=== PATIENT | female | born 1995 | race Caucasian/White ===

== ENCOUNTER 2016-10-19 12:36 | Inpatient (IN) | payer OTHER ==
[2016-10-22] MEDS ORDERED: ZOLPIDEM TARTRATE 5 MG TABLET PO PRN ×2 (01:20→18:31)
[2016-10-22] MEDS ORDERED: MAG HYDROX/AL HYDROX/SIMETH SUSP 30 ML UDCUP PO PRN (01:20)
[2016-10-22] MEDS ORDERED: DINOPROSTONE 10 MG VAGINAL INSERT.SR PV ONE (01:20)
[2016-10-22] MEDS ORDERED: RINGERS SOLUTION,LACTATED 1,000 ML IV PRN (01:20)
[2016-10-22] MEDS ORDERED: OXYTOCIN/NORMAL SALINE 20 UNIT/1,000 ML RTUINJ IV PRN (01:20)
[2016-10-22] MEDS ORDERED: ACETAMINOPHEN 325 MG TABLET PO PRN (01:20)
[2016-10-22] MEDS ORDERED: RINGERS SOLUTION,LACTATED 300 ML IV ONE (01:20)
[2016-10-22 02:04] LABS: ABSOLUTE EOSINOPHILS # (AUTO) 0.1 10^3/uL (0.0-0.6); ABSOLUTE LYMPHOCYTES (AUTO) 1.7 10^3/uL (0.5-4.7); ABSOLUTE MONOCYTES (AUTO) 0.8 10^3/uL (0.1-1.4); ABSOLUTE NEUT (AUTO) 6.3 10^3/uL (1.7-8.2); BASOPHILS % (AUTO) 0.2 % (0-2); EOSINOPHILS % (AUTO) 0.6 % (0-6); HEMATOCRIT 32.5 % (36.0-47.0); HEMOGLOBIN 10.8 g/dL (12.0-15.5); HGB HCT DIFFERENCE -0.1; LYMPHOCYTES % (AUTO) 19.3 % (13-45); MEAN CORPUSCULAR HEMOGLOBIN 26.5 pg (27.0-33.4); MEAN CORPUSCULAR HGB CONC 33.3 g/dL (32.0-36.0); MEAN CORPUSCULAR VOLUME 79 fl (80-97); MONOCYTES % (AUTO) 8.7 % (3-13); RED BLOOD COUNT 4.09 10^6/uL (3.72-5.28); RED CELL DISTRIBUTION WIDTH 15.1 % (11.5-14.0); SEGMENTED NEUTROPHILS % (AUTO) 71.2 % (42-78); WHITE BLOOD COUNT 8.9 10^3/uL (4.0-10.5)
[2016-10-22 02:09] LABS: APPEARANCE,URINE CLEAR; BILIRUBIN,URINE NEGATIVE (NEGATIVE); GLUCOSE, URINE NEGATIVE (NEGATIVE); KETONES,URINE NEGATIVE (NEGATIVE); LEUKOCYTE ESTERASE,URINE TRACE (NEGATIVE); NITRITE,URINE NEGATIVE (NEGATIVE); PROTEIN,URINE NEGATIVE (NEGATIVE); URINE SPECIFIC GRAVITY 1.013; UROBILINOGEN,URINE NEGATIVE mg/dL (<2.0)
[2016-10-22 02:29] LABS: URINE BARBITURATES SCREEN NEGATIVE; URINE METHADONE SCREEN NEGATIVE; URINE OPIATES LOW NEGATIVE; URINE PHENCYCLIDINE SCREEN NEGATIVE
[2016-10-22] MEDS ORDERED: DINOPROSTONE 10 MG VAGINAL INSERT.SR ONE (02:31)
[2016-10-22] MEDS ORDERED: MAG HYDROX/AL HYDROX/SIMETH SUSP 30 ML UDCUP ONE (02:47)
--- NOTE | 2016-10-22 08:01 | L&D Flow Sheet ---
LD Flowsheet Datetime Report Generated by CPN: 10/22/2016 08:00 Datetime: 10/22/2016 07:53 Patient Position/Activity: Left Tilt; Low Fowlers (Rayne Blaine, RN) Communication Communication: RN at Bedside (Rayne Blaine, RN) Datetime: 10/22/2016 07:52 NBP Sys/Myesha/Mean (mmHg): 114 (QS system process) : 70 (QS system process) : 88 (QS system process) Pulse: 67 (QS system process) LaborFlag: Labor (QS system process) Datetime: 10/22/2016 07:30 Uterine Activity Monitor Mode: External; Palpation (Rayne Valladares, RN) Frequency (min): irritability (Rayne Valladares, RN) Resting Tone (Palpate): Relaxed (Rayne Valladares, RN) Assessment A Monitor Mode: External US (Rayne Valladares, RN) FHR Baseline Rate : 125 (Rayne Valladares, RN) FHR Baseline Changes: No Baseline Change (Rayne Valladares, RN) Variability: Moderate 6-25 bpm (Rayne Valladares, RN) Accelerations: 15X15 (Rayne Valladares, RN) Decelerations: None (Rayne Valladares, RN) Datetime: 10/22/2016 07:26 Maternal Assessment Level of Consciousness: Fully Conscious (Rayne Valladares, RN) DTR's/Clonus: DTRs 2+; No Clonus (Rayne Valladares, RN) Headache: Denies (Rayne Valladares, RN) Breath Sounds, Left: Clear and Equal (Rayne Valladares, RN) Breath Sounds, Right: Clear and Equal (Rayne Valladares, RN) Nausea/Vomiting: Denies (Rayne Blaine, RN) RUQ Epigastric Pain: Denies (Rayne Blaine, RN) Datetime: 10/22/2016 07:10 Communication Communication: Report Given to @ M Blaine RN (Rebecca Ledgerwood, RN) Datetime: 10/22/2016 07:00 Uterine Activity Monitor Mode: External; Palpation (Rebecca Ledgerwood, RN) Frequency (min): 7.5-6.5 (Rebecca Ledgerwood, RN) Quality: Mild (Rebecca Ledgerwood, RN) Duration (sec): 80-110 (Rebecca Ledgerwood, RN) Duration Criteria: Less than Two 120 Second Contractions (Rebecca Ledgerwood, RN) Pattern: Normal: <= 5 Contractions in 10 Minutes (Rebecca Ledgerwood, RN) Resting Tone (Palpate): Relaxed (Rebecca Ledgerwood, RN) Assessment A Monitor Mode: External US (Rebecca Ledgerwood, RN) FHR Baseline Rate : 125 (Rebecca Ledgerwood, RN) FHR Baseline Changes: No Baseline Change (Rebecca Ledgerwood, RN) Variability: Moderate 6-25 bpm (Rebecca Ledgerwood, RN) Accelerations: 15X15 (Rebecca Ledgerwood, RN) Decelerations: None (Rebecca Ledgerwood, RN) Datetime: 10/22/2016 06:52 NBP Sys/Myesha/Mean (mmHg): 109 (QS system process) : 69 (QS system process) : 82 (QS system process) Pulse: 81 (QS system process) LaborFlag: Labor (QS system process) Datetime: 10/22/2016 06:30 Uterine Activity Monitor Mode: External; Palpation (Rebecca Rainey RN) Frequency (min): 1.5-5.5 (Rebecca Rainey RN) Quality: Mild (Rebecca Rainey RN) Duration (sec): 70-100 (Rebecca Rainey RN) Duration Criteria: Less than Two 120 Second Contractions (Rebecca Rainey RN) Pattern: Normal: <= 5 Contractions in 10 Minutes (Rebecca Ledgerwood, RN) Resting Tone (Palpate): Relaxed (Rebecca Ledgerwood, RN) Assessment A Monitor Mode: External US (Rebecca Ledgerwood, RN) FHR Baseline Rate : 125 (Rebecca Ledgerwood, RN) FHR Baseline Changes: No Baseline Change (Rebecca Ledgerwood, RN) Variability: Moderate 6-25 bpm (Rebecca Ledgerwood, RN) Accelerations: 15X15 (Rebecca Ledgerwood, RN) Decelerations: None (Rebecca Ledgerwood, RN) Datetime: 10/22/2016 06:00 Uterine Activity Monitor Mode: External; Palpation (Rebecca Ledgerwood, RN) Frequency (min): 4.5-6 (Rebecca Ledgerwood, RN) Quality: Mild (Rebecca Ledgerwood, RN) Duration (sec): 80-130 (Rebecca Ledgerwood, RN) Pattern: Normal: <= 5 Contractions in 10 Minutes (Rebecca Ledgerwood, RN) Resting Tone (Palpate): Relaxed (Rebecca Ledgerwood, RN) Assessment A Monitor Mode: External US (Rebecca Ledgerwood, RN) FHR Baseline Rate : 125 (Rebecca Ledgerwood, RN) FHR Baseline Changes: No Baseline Change (Rebecca Ledgerwood, RN) Variability: Moderate 6-25 bpm (Rebecca Ledgerwood, RN) Accelerations: 15X15 (Rebecca Ledgerwood, RN) Decelerations: None (Rebecca Ledgerwood, RN) Datetime: 10/22/2016 05:52 NBP Sys/Myesha/Mean (mmHg): 115 (QS system process) : 66 (QS system process) : 83 (QS system process) Pulse: 74 (QS system process) Respirations: 14 (Rebecca Rainey RN) LaborFlag: Labor (QS system process) Datetime: 10/22/2016 05:30 Uterine Activity Monitor Mode: External; Palpation (Rebecca Rainey, RN) Frequency (min): 4.5-6.5 (Rebeccaolivia Frasergerchristie, RN) Quality: Mild (Rebecca Ledgerwood, RN) Duration (sec): 50-70 (Rebecca Ledgerwood, RN) Duration Criteria: Less than Two 120 Second Contractions (Rebeccaolivia Frasergerwood, RN) Pattern: Normal: <= 5 Contractions in 10 Minutes (Rebecca Eveliogerwood, RN) Resting Tone (Palpate): Relaxed (Rebecca Ledgerwood, RN) Assessment A Monitor Mode: External US (Rebecca Ledgerwood, RN) FHR Baseline Rate : 135 (Rebecca Ledgerwood, RN) FHR Baseline Changes: No Baseline Change (Rebecca Ledgerwood, RN) Variability: Moderate 6-25 bpm (Rebecca Ledgerwood, RN) Accelerations: 10X10 (Rebecca Ledgerwood, RN) Decelerations: None (Rebecca Ledgerwood, RN) Datetime: 10/22/2016 05:00 Uterine Activity Monitor Mode: External; Palpation (Rebecca Ledgerwood, RN) Frequency (min): irreg (Rebecca Ledgerwood, RN) Quality: Mild (Rebecca Ledgerwood, RN) Duration (sec): 60-80 (Rebecca Ledgerwood, RN) Duration Criteria: Less than Two 120 Second Contractions (Rebecca Ledgerwood, RN) Pattern: Normal: <= 5 Contractions in 10 Minutes (Rebecca Ledgerwood, RN) Resting Tone (Palpate): Relaxed (Rebecca Ledgerwood, RN) Assessment A Monitor Mode: External US (Rebecca Ledgerwood, RN) FHR Baseline Rate : 155 (Rebecca Ledgerwood, RN) FHR Baseline Changes: No Baseline Change (Rebecca Ledgerwood, RN) Variability: Moderate 6-25 bpm (Rebecca Ledgerwood, RN) Accelerations: 10X10 (Rebecca Ledgerwood, RN) Decelerations: None (Rebecca Ledgerwood, RN) Datetime: 10/22/2016 04:54 NBP Sys/Myesha/Mean (mmHg): 117 (QS system process) : 55 (QS system process) : 79 (QS system process) Pulse: 65 (QS system process) LaborFlag: Labor (QS system process) Datetime: 10/22/2016 04:30 Uterine Activity Monitor Mode: External; Palpation (Rebecca Ledgerwood, RN) Frequency (min): 4-7 (Rebecca Ledgerwood, RN) Quality: Mild (Rebecca Ledgerwood, RN) Duration (sec): 70-80 (Rebecca Ledgerwood, RN) Duration Criteria: Less than Two 120 Second Contractions (Rebecca Ledgerwood, RN) Pattern: Normal: <= 5 Contractions in 10 Minutes (Rebecca Ledgerwood, RN) Resting Tone (Palpate): Relaxed (Rebecca Ledgerwood, RN) Assessment A Monitor Mode: External US (Rebecca Ledgerwood, RN) FHR Baseline Rate : 155 (Rebecca Ledgerwood, RN) FHR Baseline Changes: No Baseline Change (Rebecca Ledgerwood, RN) Variability: Moderate 6-25 bpm (Rebecca Ledgerwood, RN) Accelerations: 10X10 (Rebecca Ledgerwood, RN) Decelerations: None (Rebecca Ledgerwood, RN) Datetime: 10/22/2016 04:00 Uterine Activity Monitor Mode: External; Palpation (Rebecca Ledgerwood, RN) Frequency (min): 2-6.5 (Rebecca Ledgerwood, RN) Quality: Mild (Rebecca Ledgerwood, RN) Duration (sec): 50-80 (Rebecca Ledgerwood, RN) Duration Criteria: Less than Two 120 Second Contractions (Rebecca Ledgerwood, RN) Pattern: Normal: <= 5 Contractions in 10 Minutes (Rebecca Ledgerwood, RN) Resting Tone (Palpate): Relaxed (Rebecca Ledgerwood, RN) Assessment A Monitor Mode: External US (Rebecca Ledgerwood, RN) FHR Baseline Rate : 125 (Rebecca Ledgerwood, RN) FHR Baseline Changes: No Baseline Change (Rebecca Ledgerwood, RN) Variability: Moderate 6-25 bpm (Rebecca Ledgerwood, RN) Accelerations: 15X15 (Rebecca Ledgerwood, RN) Decelerations: None (Rebecca Ledgerwood, RN) Datetime: 10/22/2016 03:52 NBP Sys/Myesha/Mean (mmHg): 101 (QS system process) : 57 (QS system process) : 73 (QS system process) Pulse: 68 (QS system process) Respirations: 14 (Rebecca Ledgerwood, RN) LaborFlag: Labor (QS system process) Datetime: 10/22/2016 03:30 Uterine Activity Monitor Mode: External; Palpation (Rebecca Ledgerwood, RN) Frequency (min): 1.5-5.5 (Rebecca Ledgerwood, RN) Quality: Mild (Rebecca Ledgerwood, RN) Duration (sec): 70-90 (Rebecca Ledgerwood, RN) Duration Criteria: Less than Two 120 Second Contractions (Rebecca Ledgerwood, RN) Pattern: Normal: <= 5 Contractions in 10 Minutes (Rebecca Ledgerwood, RN) Resting Tone (Palpate): Relaxed (Rebecca Ledgerwood, RN) Assessment A Monitor Mode: External US (Rebecca Ledgerwood, RN) FHR Baseline Rate : 125 (Rebecca Ledgerwood, RN) FHR Baseline Changes: No Baseline Change (Rebecca Ledgerwood, RN) Variability: Moderate 6-25 bpm (Rebecca Ledgerwood, RN) Accelerations: 15X15 (Rebecca Ledgerwood, RN) Decelerations: None (Rebecca Ledgerwood, RN) Datetime: 10/22/2016 03:00 Uterine Activity Monitor Mode: External; Palpation (Rebecca Ledgerwood, RN) Frequency (min): 3.5-8.5 (Rebecca Ledgerwood, RN) Quality: Mild (Rebecca Ledgerwood, RN) Duration (sec): 70-90 (Rebecca Ledgerwood, RN) Duration Criteria: Less than Two 120 Second Contractions (Rebecca Ledgerwood, RN) Pattern: Normal: <= 5 Contractions in 10 Minutes (Rebecca Ledgerwood, RN) Resting Tone (Palpate): Relaxed (Rebecca Ledgerwood, RN) Assessment A Monitor Mode: External US (Rebecca Ledgerwood, RN) FHR Baseline Rate : 125 (Rebecca Ledgerwood, RN) FHR Baseline Changes: No Baseline Change (Rebecca Ledgerwood, RN) Variability: Moderate 6-25 bpm (Rebecca Ledgerwood, RN) Accelerations: 15X15 (Rebecca Ledgerwood, RN) Decelerations: None (Rebecca Ledgerwood, RN) Datetime: 10/22/2016 02:52 NBP Sys/Myesha/Mean (mmHg): 110 (QS system process) : 59 (QS system process) : 80 (QS system process) Pulse: 72 (QS system process) LaborFlag: Labor (QS system process) Datetime: 10/22/2016 02:49 Medication Comments: Maalox 30 ml given (Rebecca Ledgerwood, RN) Datetime: 10/22/2016 02:42 Medications Cervical Ripening Agents: Cervidil (Rebecca Ledgerwood, RN) Datetime: 10/22/2016 02:40 Vaginal Exam Dilatation (cm): 1.0 (Rebecca Ledgerwood, RN) Effacement (%): 80 (Rebecca Ledgerwood, RN) Station: -1 (Rebecca Ledgerwood, RN) Exam by: O Redd RN (Rebecca Ledgerwood, RN) Datetime: 10/22/2016 02:30 Uterine Activity Monitor Mode: External; Palpation (Rebecca Ledgerwood, RN) Frequency (min): 1.5-7 (Rebecca Ledgerwood, RN) Quality: Mild (Rebecca Ledgerwood, RN) Duration (sec): 70-90 (Rebecca Ledgerwood, RN) Duration Criteria: More than Two 120 Second or Greater Contractions (Rebecca Ledgerwood, RN) Pattern: Normal: <= 5 Contractions in 10 Minutes (Rebecca Ledgerwood, RN) Resting Tone (Palpate): Relaxed (Rebecca Ledgerwood, RN) Assessment A Monitor Mode: External US (Rebecca Ledgerwood, RN) FHR Baseline Rate : 120 (Rebecca Ledgerwood, RN) FHR Baseline Changes: No Baseline Change (Rebecca Ledgerwood, RN) Variability: Moderate 6-25 bpm (Rebecca Ledgerwood, RN) Accelerations: 15X15 (Rebecca Ledgerwood, RN) Decelerations: None (Rebecca Ledgerwood, RN) Datetime: 10/22/2016 02:21 NBP Sys/Myesha/Mean (mmHg): 125 (QS system process) : 71 (QS system process) : 93 (QS system process) Pulse: 86 (QS system process) LaborFlag: Labor (QS system process) Datetime: 10/22/2016 02:16 Procedures: Consents Signed (Rebecca Ledgerwood, RN) Datetime: 10/22/2016 02:10 Patient Care IV/Blood Work: IV Started; IV Bolus Started; IV Infusing per Order; New IV Bag Hung (Ellyn Errichiello, RN) Datetime: 10/22/2016 02:00 Uterine Activity Monitor Mode: External; Palpation (Rebecca Ledgerwood, RN) Frequency (min): 2.5-5.5 (Rebecca Ledgerwood, RN) Quality: Mild (Rebecca Ledgerwood, RN) Duration (sec): 70-90 (Rebecca Ledgerwood, RN) Duration Criteria: Less than Two 120 Second Contractions (Rebecca Ledgerwood, RN) Pattern: Normal: <= 5 Contractions in 10 Minutes (Rebecca Ledgerwood, RN) Resting Tone (Palpate): Relaxed (Rebecca Ledgerwood, RN) Assessment A Monitor Mode: External US (Rebecca Ledgerwood, RN) FHR Baseline Rate : 125 (Rebecca Ledgerwood, RN) FHR Baseline Changes: No Baseline Change (Rebecca Ledgerwood, RN) Variability: Moderate 6-25 bpm (Rebecca Ledgerwood, RN) Accelerations: 15X15 (Rebecca Ledgerwood, RN) Decelerations: None (Rebecca Ledgerwood, RN) Datetime: 10/22/2016 01:51 NBP Sys/Myesha/Mean (mmHg): 104 (QS system process) : 56 (QS system process) : 72 (QS system process) Pulse: 76 (QS system process) LaborFlag: Labor (QS system process) Datetime: 10/22/2016 01:30 Uterine Activity Monitor Mode: External; Palpation (Rebecca Rainey RN) Frequency (min): 3.5 (Rebecca Rainey RN) Quality: Mild (Rebecca Ledgerwood, RN) Duration (sec): 70 (Rebecca Ledgerwood, RN) Duration Criteria: Less than Two 120 Second Contractions (Rebecca Ledgerwood, RN) Pattern: Normal: <= 5 Contractions in 10 Minutes (Rebecca Ledgerwood, RN) Resting Tone (Palpate): Relaxed (Rebecca Ledgerwood, RN) Assessment A Monitor Mode: External US (Rebecca Ledgerwood, RN) FHR Baseline Rate : 120 (Rebecca Ledgerwood, RN) FHR Baseline Changes: No Baseline Change (Rebecca Ledgerwood, RN) Variability: Minimal - Undetectable to <=5 bpm (Rebecca Ledgerwood, RN) Accelerations: None (Rebecca Ledgerwood, RN) Decelerations: None (Rebecca Ledgerwood, RN) Datetime: 10/22/2016 01:22 NBP Sys/Myesha/Mean (mmHg): 102 (QS system process) : 62 (QS system process) : 75 (QS system process) Pulse: 88 (QS system process) Respirations: 14 (Rebecca Ledgerwood, RN) LaborFlag: Labor (QS system process) Datetime: 10/22/2016 01:21 Pain Pain Scale: 2 (Rebecca Ledgerwood, RN) Pain Presence: Constant (Rebecca Ledgerwood, RN) Pain Type: Cramping (Rebecca Ledgerwood, RN) Pain Location: Abdomen (Rebecca Ledgerwood, RN) Pain Relief Measures: Comfort Measures (Rebecca Ledgerwood, RN) Pain Coping: Breathing Through Contractions (Rebecca Ledgerwood, RN) Maternal Assessment Level of Consciousness: Fully Conscious (Rebecca Ledgerwood, RN) DTR's/Clonus: DTRs 2+; No Clonus (Rebecca Rainey RN) Headache: Denies (Rebecca Rainey RN) Breath Sounds, Left: Clear and Equal (Rebecca Rainey RN) Breath Sounds, Right: Clear and Equal (Rebecca Raieny, RN) Nausea/Vomiting: Denies (Rebecca Rainey, RN) RUQ Epigastric Pain: Denies (Rebecca Rainey RN) Teaching Instructional Method: Demo; Verbal; Patient Instructed (Rebecca Rainey RN) Plan of Care: Plan of Care Discussed; Vaginal Delivery; Labor; Induction (Rebecca Rainey RN) Unit Routine: [place] to Room; Call Jack; Bed; Visiting Policy; Waiting Areas; Security; Handwashing; Monitoring; Safety/Fall Risk Prevention; Medications (Annotations: Cervadil) (Rebecca Rainey RN) Medications: Cervical Ripening (Rebecca Rainey RN) LaborFlag: Labor (QS system process) Datetime: 10/22/2016 01:04 Vital Signs Stage of : Labor (Rebecca Rainey, DEBORA)
--- NOTE | 2016-10-22 10:01 | L&D Flow Sheet ---
LD Flowsheet Datetime Report Generated by CPN: 10/22/2016 10:00 Datetime: 10/22/2016 09:54 Dilatation (cm): 3.0 (Rayne Valladares, RN) Effacement (%): 80 (Rayne Valladares, RN) Station: -1 (Rayne Valladares, RN) Exam by: H. Jared, CNM (Rayne Valladares, RN) Datetime: 10/22/2016 09:00 Communication Comments: patient off monitor to shower and eat per order (Rayne Valladares, RN) Datetime: 10/22/2016 08:30 Communication Comments: patient off monitor to shower and eat per order (Rayne Valladares, RN) Datetime: 10/22/2016 08:00 Monitor Mode: External; Palpation (Rayne Valladares RN) Frequency (min): irritability (Rayne Valladares RN) Quality: Mild (Rayne Valladares RN) Pattern: Normal: <= 5 Contractions in 10 Minutes (Rayne Valladares RN) Resting Tone (Palpate): Relaxed (Rayne Valladares RN) Monitor Mode: External US (Rayne Valladares RN) FHR Baseline Rate : 120 (Rayne Valladares RN) FHR Baseline Changes: No Baseline Change (Rayne Valladares RN) Variability: Moderate 6-25 bpm (Rayne Valladares RN) Accelerations: 15X15 (Rayne Valladares RN) Decelerations: None (Rayne Valladares RN) Dilatation (cm): 1.0 (Rayne Valladares RN) Effacement (%): 60 (Rayne Valladares RN) Station: -2 (Rayne Valladares RN) Exam by: Ankush Valladares RN (Rayne Valladares RN)
[2016-10-22] MEDS ORDERED: OXYTOCIN/NORMAL SALINE 0 UNIT/0 ML RTUINJ ONE (10:04)
[2016-10-22] MEDS ORDERED: ACETAMINOPHEN 325 MG TABLET ONE (10:12)
[2016-10-22] MEDS ORDERED: NALBUPHINE HCL INJ 10 MG/1 ML AMPULE ONE (10:39)
[2016-10-22] MEDS ORDERED: EPHEDRINE SULFATE INJ 50 MG/1 ML AMPULE ONE (10:59)
[2016-10-22] MEDS ORDERED: BUPIVACAINE HCL 0.25 % INJ/PF (2.5 MG/1 ML) 30 ML VIAL ONE (10:59)
[2016-10-22] MEDS ORDERED: FENTANYL/BUPIVACAINE/NS/PF 200 MCG/100 ML RTUINJ EPI ONE (10:59)
--- NOTE | 2016-10-22 12:01 | L&D Flow Sheet ---
LD Flowsheet Datetime Report Generated by CPN: 10/22/2016 12:00 Datetime: 10/22/2016 11:59 NBP Sys/Myesha/Mean (mmHg): 102 (QS system process) : 61 (QS system process) : 77 (QS system process) Pulse: 75 (QS system process) Pulse: 92 (QS system process) SpO2 (%): 94 (QS system process) LaborFlag: Labor (QS system process) Datetime: 10/22/2016 11:58 NBP Sys/Myesha/Mean (mmHg): 104 (QS system process) : 63 (QS system process) : 76 (QS system process) Pulse: 82 (QS system process) Epidural Procedure: Test Dose (Rayne Valladares RN) LaborFlag: Labor (QS system process) Datetime: 10/22/2016 11:57 NBP Sys/Myesha/Mean (mmHg): 106 (QS system process) : 65 (QS system process) : 81 (QS system process) Pulse: 89 (QS system process) LaborFlag: Labor (QS system process) Datetime: 10/22/2016 11:56 Pulse: 91 (QS system process) SpO2 (%): 95 (QS system process) LaborFlag: Labor (QS system process) Datetime: 10/22/2016 11:55 Anesthesia Plans: Epidural (Rayne Valladares, RN) Epidural Positioning: Sitting (Rayne Blaine, RN) Epidural Procedure: Cath Placed (Rayne Valladares, RN) Datetime: 10/22/2016 11:54 NBP Sys/Myesha/Mean (mmHg): 109 (QS system process) : 65 (QS system process) : 82 (QS system process) Pulse: 82 (QS system process) LaborFlag: Labor (QS system process) Datetime: 10/22/2016 11:53 NBP Sys/Myesha/Mean (mmHg): 105 (QS system process) : 63 (QS system process) : 77 (QS system process) Pulse: 85 (QS system process) LaborFlag: Labor (QS system process) Datetime: 10/22/2016 11:52 NBP Sys/Myesha/Mean (mmHg): 112 (QS system process) : 67 (QS system process) : 83 (QS system process) Pulse: 93 (QS system process) LaborFlag: Labor (QS system process) Datetime: 10/22/2016 11:51 NBP Sys/Myesha/Mean (mmHg): 109 (QS system process) : 65 (QS system process) : 82 (QS system process) Pulse: 77 (QS system process) Pulse: 78 (QS system process) SpO2 (%): 94 (QS system process) Anesthesia Comments: cath removed (Rayne Valladares RN) LaborFlag: Labor (QS system process) Datetime: 10/22/2016 11:50 NBP Sys/Myesha/Mean (mmHg): 109 (QS system process) : 68 (QS system process) : 84 (QS system process) Pulse: 77 (QS system process) LaborFlag: Labor (QS system process) Datetime: 10/22/2016 11:49 NBP Sys/Myesha/Mean (mmHg): 120 (QS system process) : 71 (QS system process) : 90 (QS system process) Pulse: 86 (QS system process) Anesthesia Plans: Epidural (Rayne Valladares RN) Epidural Positioning: Sitting (Rayne Valladares RN) Epidural Procedure: Test Dose (Rayne Valladares RN) Epidural Procedure: Cath Placed (Rayne Valladares RN) LaborFlag: Labor (QS system process) Datetime: 10/22/2016 11:48 NBP Sys/Myesha/Mean (mmHg): 120 (QS system process) : 68 (QS system process) : 90 (QS system process) Pulse: 84 (QS system process) LaborFlag: Labor (QS system process) Datetime: 10/22/2016 11:47 NBP Sys/Myesha/Mean (mmHg): 114 (QS system process) : 73 (QS system process) : 88 (QS system process) Pulse: 83 (QS system process) SpO2 (%): 94 (QS system process) LaborFlag: Labor (QS system process) Datetime: 10/22/2016 11:46 Pulse: 82 (QS system process) SpO2 (%): 95 (QS system process) Anesthesia Comments: cath removed (Rayne Blaine, RN) LaborFlag: Labor (QS system process) Datetime: 10/22/2016 11:45 Comments: tracing maternal HR (Rayne Valladares RN) Anesthesia Plans: Epidural (Rayne Valladares RN) Epidural Positioning: Sitting (Rayne Valladares RN) Epidural Procedure: Cath Placed; Test Dose (Rayne Valladares RN) Datetime: 10/22/2016 11:44 NBP Sys/Myesha/Mean (mmHg): 114 (QS system process) : 72 (QS system process) : 89 (QS system process) Pulse: 80 (QS system process) LaborFlag: Labor (QS system process) Datetime: 10/22/2016 11:42 NBP Sys/Myesha/Mean (mmHg): 122 (QS system process) : 79 (QS system process) : 94 (QS system process) Pulse: 77 (QS system process) LaborFlag: Labor (QS system process) Datetime: 10/22/2016 11:41 Pulse: 80 (QS system process) SpO2 (%): 96 (QS system process) LaborFlag: Labor (QS system process) Datetime: 10/22/2016 11:40 NBP Sys/Myesha/Mean (mmHg): 116 (QS system process) : 76 (QS system process) : 93 (QS system process) Pulse: 72 (QS system process) LaborFlag: Labor (QS system process) Datetime: 10/22/2016 11:39 Procedure Verify: Correct Patient Identity; Correct Side and Site are Marked; Accurate Procedure Consent Form; Agreement on Procedure to be Done; Correct Patient Position; Relevant Images and Results are Properly Labeled and Displayed; Addressed Need to Administer Antibiotics or Fluids for Irrigation; Safety Precautions Based on Patient History or Medication Use (Rayne Valladares RN) Anesthesia Plans: Epidural (Rayne Valladares RN) Epidural Positioning: Sitting (Rayne Valladares RN) Datetime: 10/22/2016 11:36 Pulse: 78 (QS system process) Pulse: 72 (QS system process) SpO2 (%): 93 (QS system process) SpO2 (%): 92 (QS system process) LaborFlag: Labor (QS system process) Datetime: 10/22/2016 11:21 NBP Sys/Myesha/Mean (mmHg): 106 (QS system process) : 57 (QS system process) : 74 (QS system process) Pulse: 74 (QS system process) LaborFlag: Labor (QS system process) Datetime: 10/22/2016 11:15 Monitor Mode: External; Palpation (Rayne Valladares, RN) Frequency (min): 3-7.5 (Rayne Valladares, RN) Quality: Mild/Moderate (Rayne Blaine, RN) Duration (sec): 40-120 (Rayne Blaine, RN) Duration Criteria: Less than Two 120 Second Contractions (Rayne Blaine, RN) Pattern: Normal: <= 5 Contractions in 10 Minutes (Rayne Blaine, RN) Resting Tone (Palpate): Relaxed (Rayneclotilde Valladares, RN) Monitor Mode: External US (Rayne Valladares, RN) FHR Baseline Rate : 135 (Rayne Valladares, RN) FHR Baseline Changes: No Baseline Change (Rayne Blaine, RN) Variability: Moderate 6-25 bpm (Rayne Blaine, RN) Accelerations: None (Rayne Blaine, RN) Decelerations: None (Rayne Blaine, RN) Datetime: 10/22/2016 11:05 NBP Sys/Myesha/Mean (mmHg): 106 (QS system process) : 62 (QS system process) : 77 (QS system process) Pulse: 75 (QS system process) LaborFlag: Labor (QS system process) Datetime: 10/22/2016 11:00 Monitor Mode: External; Palpation (Rayne Valladares, DEBORA) Frequency (min): 3.5-4.5 (Rayne Valladares, DEBORA) Quality: Mild/Moderate (Rayne Valladares, RN) Duration (sec): 70-90 (Rayne Valladares, RN) Duration Criteria: Less than Two 120 Second Contractions (aRyne Valladares, RN) Pattern: Normal: <= 5 Contractions in 10 Minutes (Rayne Valladares, RN) Resting Tone (Palpate): Relaxed (Rayne Valladares, RN) Monitor Mode: External US (Rayne Valladares, RN) FHR Baseline Rate : 135 (Rayne Valladares, RN) FHR Baseline Changes: No Baseline Change (Rayne Valladares, RN) Variability: Moderate 6-25 bpm (Rayne Valladares, RN) Accelerations: 15X15 (Rayne Valladares, RN) Decelerations: None (Rayne Valladares, RN) Pitocin (milliunit): Pitocin Remains (milliunits) @ (Annotations: 2) (Rayne Valladares, RN) Datetime: 10/22/2016 10:45 Comments: unable to determine, patient in BR (Rayne Valladares, DEBORA) Pitocin (milliunit): Pitocin Increased to (milliunits) @ 2 (Rayne Valladares, RN) Datetime: 10/22/2016 10:42 IV/Blood Work: New IV Bag Hung (Rayne Valladares RN) Patient Position/Activity: Right Extreme; Low Fowlers (Rayne Valladares RN) Datetime: 10/22/2016 10:40 IV/Blood Work: IV Bolus Started (Rayne Valladares RN) Procedure Verify: Correct Patient Identity; Correct Side and Site are Marked; Accurate Procedure Consent Form; Agreement on Procedure to be Done; Relevant Images and Results are Properly Labeled and Displayed; Addressed Need to Administer Antibiotics or Fluids for Irrigation; Safety Precautions Based on Patient History or Medication Use (Rayne Valladares RN) Anesthesia Plans: Epidural (Rayne Valladares RN) Datetime: 10/22/2016 10:39 Patient Care Comments: patient c/o pain 4/5 in vagina, order received from Dr. Aguirre for Nubain 5 mg IV x1 now (Rayne Valladares RN) Datetime: 10/22/2016 10:37 Dilatation (cm): 4.0 (Rayne Valladares RN) Effacement (%): 90 (Rayne Valladares RN) Station: -1 (Rayne Valladares RN) Exam by: Dr. Aguirre (Rayne Valladares RN) Datetime: 10/22/2016 10:30 Monitor Mode: External; Palpation (Rayne Valladares RN) Quality: Mild/Moderate (Rayne Valladares RN) Pattern: Normal: <= 5 Contractions in 10 Minutes (Rayne Valladares RN) Resting Tone (Palpate): Relaxed (Rayne Valladares RN) Contraction Comments: unable to trace contractions due to patient movement, RN at bedside palpating contractions, uterus relaxed in between contractions (Rayne Valladares RN) Monitor Mode: External US (Rayne Valladares RN) FHR Baseline Rate : 130 (Rayne Blaine, RN) FHR Baseline Changes: No Baseline Change (Rayne Valladares, RN) Variability: Moderate 6-25 bpm (Rayne Valladares, RN) Accelerations: 15X15 (Rayne Valladares, RN) Decelerations: None (Rayne Valladares, RN) Pitocin (milliunit): Pitocin Remains (milliunits) @ (Annotations: 1) (Rayne Valladares, RN) Datetime: 10/22/2016 10:27 I/O Interventions: Up to BR (Rayne Valladares, RN) Datetime: 10/22/2016 10:22 Patient Position/Activity: Right Extreme; Semi-Fowlers (Rayne Valladares, RN) Datetime: 10/22/2016 10:16 Patient Care Comments: rocking chair (Rayne Valladares, RN) Datetime: 10/22/2016 10:15 Monitor Mode: External; Palpation (Rayne Valladares, RN) Frequency (min): irritability (Rayne Valladares, DEBORA) Quality: Mild (Rayne Valladares, RN) Duration Criteria: Less than Two 120 Second Contractions (Rayne Valladares, RN) Pattern: Normal: <= 5 Contractions in 10 Minutes (Rayne Valladares, RN) Resting Tone (Palpate): Relaxed (Rayne Valladares, RN) Monitor Mode: External US (Rayne Valladares, RN) FHR Baseline Rate : 135 (Rayne Valladares, RN) FHR Baseline Changes: No Baseline Change (Rayne Valladares, RN) Variability: Moderate 6-25 bpm (Rayne Valladares, RN) Accelerations: 15X15 (Rayne Valladares, RN) Decelerations: None (Rayne Valladares, RN) Pitocin (milliunit): Pitocin Started (milliunits) @ 1; Pitocin 20 Units in 1000ml NS (Rayne Valladares, RN) Datetime: 10/22/2016 10:12 Analgesics/Sedatives: Tylenol (mg) @ 650 (Rayne Valladares RN) Communication Comments: Tylenol per standing order (Rayne Valladares RN) Datetime: 10/22/2016 10:00 Monitor Mode: External; Palpation (Rayne Valladares RN) Frequency (min): x1 (Rayne Valladares RN) Quality: Mild (Rayne Valladares RN) Duration (sec): 150 (Rayne Valladares RN) Duration Criteria: Less than Two 120 Second Contractions (Rayne Valladares RN) Pattern: Normal: <= 5 Contractions in 10 Minutes (Rayne Valladares RN) Resting Tone (Palpate): Relaxed (Rayne Valladares RN) Monitor Mode: External US (Rayne Valladares RN) FHR Baseline Rate : 130 (Rayne Valladares RN) FHR Baseline Changes: No Baseline Change (Rayne Valladares RN) Variability: Moderate 6-25 bpm (Rayne Valladares RN) Accelerations: 15X15 (Rayne Valladares RN) Decelerations: None (Rayne Valladares, DEBORA)
--- NOTE | 2016-10-22 14:01 | L&D Flow Sheet ---
LD Flowsheet Datetime Report Generated by CPN: 10/22/2016 14:00 Datetime: 10/22/2016 13:58 NBP Sys/Myesha/Mean (mmHg): 105 (QS system process) : 63 (QS system process) : 80 (QS system process) Pulse: 74 (QS system process) LaborFlag: Labor (QS system process) Datetime: 10/22/2016 13:44 NBP Sys/Myesha/Mean (mmHg): 115 (QS system process) : 76 (QS system process) : 91 (QS system process) Pulse: 65 (QS system process) LaborFlag: Labor (QS system process) Datetime: 10/22/2016 13:30 Monitor Mode: External; Palpation (Rayne Valladares RN) Frequency (min): 1-3.5 (Rayne Valladares RN) Quality: Mild/Moderate (Rayne Valladares, RN) Duration (sec): 40-60 (Rayne Valladares, DEBORA) Duration Criteria: Less than Two 120 Second Contractions (Rayne Valladares, DEBORA) Pattern: Normal: <= 5 Contractions in 10 Minutes (Rayne Valladares RN) Resting Tone (Palpate): Relaxed (Rayne Valladares, RN) Monitor Mode: External US (Rayne Valladares, [place]BOR[place]) FHR Baseline Rate : 120 (Rayne Valladares RN) FHR Baseline Changes: No Baseline Change (Rayne Valladares RN) Variability: Moderate 6-25 bpm (Rayne Valladares, RN) Accelerations: 10X10 (Rayne Valladares, RN) Decelerations: None (Rayne Valladares, DEBORA) Datetime: 10/22/2016 13:29 NBP Sys/Myesha/Mean (mmHg): 126 (QS system process) : 74 (QS system process) : 93 (QS system process) Pulse: 59 (QS system process) LaborFlag: Labor (QS system process) Datetime: 10/22/2016 13:15 Monitor Mode: External; Palpation (Rayne Valladares RN) Monitor Interventions for UA: [place] Adjusted (Rayne Valladares RN) Frequency (min): 1.5-3.5 (Rayne Valladares RN) Quality: Mild/Moderate (Rayne Valladares RN) Duration (sec): 60-90 (Rayne Valladares RN) Duration Criteria: Less than Two 120 Second Contractions (Rayne Valladares RN) Pattern: Normal: <= 5 Contractions in 10 Minutes (Rayne Valladares RN) Resting Tone (Palpate): Relaxed (Rayne Valladares RN) Monitor Mode: External US (Rayne Valladares RN) FHR Baseline Rate : 120 (Rayne Valladares RN) FHR Baseline Changes: No Baseline Change (Rayne Valladares RN) Variability: Moderate 6-25 bpm (Rayne Valladares RN) Accelerations: 10X10 (Rayne Valladares RN) Decelerations: None (Rayne Valladares RN) Pitocin (milliunit): Pitocin Increased to (milliunits) @ (Annotations: 8) (Rayne Valladares RN) Datetime: 10/22/2016 13:13 NBP Sys/Myesha/Mean (mmHg): 122 (QS system process) : 62 (QS system process) : 87 (QS system process) Pulse: 75 (QS system process) Patient Position/Activity: Left Extreme; Peanut Ball (Rayne Valladares RN) LaborFlag: Labor (QS system process) Datetime: 10/22/2016 13:06 NBP Sys/Myesha/Mean (mmHg): 119 (QS system process) : 72 (QS system process) : 90 (QS system process) Pulse: 69 (QS system process) LaborFlag: Labor (QS system process) Datetime: 10/22/2016 13:01 NBP Sys/Myesha/Mean (mmHg): 110 (QS system process) : 74 (QS system process) : 87 (QS system process) Pulse: 78 (QS system process) LaborFlag: Labor (QS system process) Datetime: 10/22/2016 13:00 Monitor Mode: External; Palpation (Rayne Valladares RN) Frequency (min): 2-2.5 (Rayne Valladares RN) Quality: Mild/Moderate (Rayne Valladares RN) Duration (sec): 60-70 (Rayne Valladares, DEB[place]) Duration Criteria: Less than Two 120 Second Contractions (Rayne Valladares, [place]) Pattern: Normal: <= 5 Contractions in 10 Minutes (Rayne Valladares RN) Resting Tone (Palpate): Relaxed (Rayne Valladares, DEBOR[place]) Monitor Mode: External US (Rayne Valladares, [place]) FHR Baseline Rate : 120 (Rayne Valladares RN) FHR Baseline Changes: No Baseline Change (Ranye Valladares RN) Variability: Moderate 6-25 bpm (Rayne Valladares, [place]) Accelerations: 10X10 (Rayne Valladares, RN) Decelerations: None (Rayne Valladares, [place]) Pitocin (milliunit): Pitocin Remains (milliunits) @ (Annotations: 6) (Rayne Valladares RN) Datetime: 10/22/2016 12:57 NBP Sys/Myesha/Mean (mmHg): 114 (QS system process) : 74 (QS system process) : 89 (QS system process) Pulse: 71 (QS system process) LaborFlag: Labor (QS system process) Datetime: 10/22/2016 12:52 NBP Sys/Myesha/Mean (mmHg): 112 (QS system process) : 71 (QS system process) : 85 (QS system process) Pulse: 74 (QS system process) LaborFlag: Labor (QS system process) Datetime: 10/22/2016 12:46 NBP Sys/Myesha/Mean (mmHg): 109 (QS system process) : 66 (QS system process) : 83 (QS system process) Pulse: 83 (QS system process) Pulse: 80 (QS system process) SpO2 (%): 99 (QS system process) LaborFlag: Labor (QS system process) Datetime: 10/22/2016 12:45 Monitor Mode: External; Palpation (Rayne Valladares RN) Frequency (min): 2.5-3 (Rayne Valladares RN) Quality: Mild/Moderate (Rayne Valladares RN) Duration (sec): 60-70 (Rayne Valladares, [place]) Duration Criteria: Less than Two 120 Second Contractions (Rayne Valladares RN) Pattern: Normal: <= 5 Contractions in 10 Minutes (Rayne Valladares RN) Resting Tone (Palpate): Relaxed (Rayne Valladares, [place]) Monitor Mode: External US (Rayne Valladares, [place]) FHR Baseline Rate : 125 (Rayne Valladares RN) FHR Baseline Changes: No Baseline Change (Rayne Valladares RN) Variability: Moderate 6-25 bpm (Rayne Valladares, [place]) Accelerations: 15X15 (Rayne Valladares, [place]) Decelerations: None (Rayne Valladares, [place]) Pitocin (milliunit): Pitocin Increased to (milliunits) @ (Annotations: 6) (Rayne Valladares RN) Datetime: 10/22/2016 12:42 NBP Sys/Myesha/Mean (mmHg): 116 (QS system process) : 68 (QS system process) : 87 (QS system process) Pulse: 76 (QS system process) LaborFlag: Labor (QS system process) Datetime: 10/22/2016 12:41 Pulse: 80 (QS system process) SpO2 (%): 97 (QS system process) LaborFlag: Labor (QS system process) Datetime: 10/22/2016 12:38 Pulse: 82 (QS system process) SpO2 (%): 94 (QS system process) LaborFlag: Labor (QS system process) Datetime: 10/22/2016 12:36 NBP Sys/Myesha/Mean (mmHg): 116 (QS system process) : 70 (QS system process) : 88 (QS system process) Pulse: 80 (QS system process) Pulse: 76 (QS system process) SpO2 (%): 99 (QS system process) LaborFlag: Labor (QS system process) Datetime: 10/22/2016 12:31 NBP Sys/Myesha/Mean (mmHg): 110 (QS system process) : 66 (QS system process) : 83 (QS system process) Pulse: 69 (QS system process) Pulse: 74 (QS system process) SpO2 (%): 98 (QS system process) LaborFlag: Labor (QS system process) Datetime: 10/22/2016 12:30 Monitor Mode: External; Palpation (Rayne Valladares RN) Frequency (min): 2.5-3.5 (Rayne Valladares RN) Quality: Mild/Moderate (Rayne Valladares RN) Duration (sec): 60-80 (Rayne Valladares RN) Duration Criteria: Less than Two 120 Second Contractions (Rayne Valladares RN) Pattern: Normal: <= 5 Contractions in 10 Minutes (Rayne Valladares RN) Resting Tone (Palpate): Relaxed (Rayne Valladares RN) Monitor Mode: External US (Rayne Valladares RN) FHR Baseline Rate : 125 (Rayne Valladares RN) FHR Baseline Changes: No Baseline Change (Rayne Valladares RN) Variability: Moderate 6-25 bpm (Rayne Valladares RN) Accelerations: None (Rayne Valladares RN) Decelerations: None (Rayne Valladares RN) Pitocin (milliunit): Pitocin Increased to (milliunits) @ (Annotations: 4) (Rayne Valladares RN) Communication Comments: Order received from Marcos Coleman CNM to increase Pitocin by 2 milliunits/min every 15 minutes to a max of 20 milliunits/min or until adequate labor is reached (Rayne Valladares RN) Datetime: 10/22/2016 12:26 NBP Sys/Myesha/Mean (mmHg): 103 (QS system process) : 60 (QS system process) : 78 (QS system process) Pulse: 88 (QS system process) Pulse: 83 (QS system process) SpO2 (%): 97 (QS system process) LaborFlag: Labor (QS system process) Datetime: 10/22/2016 12:21 NBP Sys/Myesha/Mean (mmHg): 110 (QS system process) : 64 (QS system process) : 82 (QS system process) Pulse: 79 (QS system process) Pulse: 78 (QS system process) SpO2 (%): 96 (QS system process) Patient Position/Activity: Right Tilt; Low Fowlers (Rayne Valladares RN) LaborFlag: Labor (QS system process) Datetime: 10/22/2016 12:16 Pulse: 80 (QS system process) SpO2 (%): 95 (QS system process) LaborFlag: Labor (QS system process) Datetime: 10/22/2016 12:15 NBP Sys/Myesha/Mean (mmHg): 106 (QS system process) : 62 (QS system process) : 79 (QS system process) Pulse: 78 (QS system process) Monitor Mode: External; Palpation (Rayne Valladares RN) Frequency (min): 3-7 (Rayne Valladares RN) Quality: Mild/Moderate (Rayne Valladares RN) Duration (sec): 70-80 (Rayne Valladares RN) Duration Criteria: Less than Two 120 Second Contractions (Rayen Valladares RN) Pattern: Normal: <= 5 Contractions in 10 Minutes (Rayne Valladares RN) Resting Tone (Palpate): Relaxed (Rayne Valladares RN) Monitor Mode: External US (Rayne Valladares RN) FHR Baseline Rate : 125 (Rayne Valladares RN) FHR Baseline Changes: No Baseline Change (Rayne Valladares RN) Variability: Moderate 6-25 bpm (Rayne Valladares RN) Accelerations: 15X15 (Rayne Valladares RN) Decelerations: None (Rayne Valladares RN) Pitocin (milliunit): Pitocin Remains (milliunits) @ (Annotations: 3) (Rayne Valladares RN) LaborFlag: Labor (QS system process) Datetime: 10/22/2016 12:14 NBP Sys/Myesha/Mean (mmHg): 104 (QS system process) : 62 (QS system process) : 79 (QS system process) Pulse: 81 (QS system process) LaborFlag: Labor (QS system process) Datetime: 10/22/2016 12:13 NBP Sys/Myesha/Mean (mmHg): 103 (QS system process) : 62 (QS system process) : 78 (QS system process) Pulse: 78 (QS system process) LaborFlag: Labor (QS system process) Datetime: 10/22/2016 12:12 NBP Sys/Myesha/Mean (mmHg): 100 (QS system process) : 61 (QS system process) : 76 (QS system process) Pulse: 82 (QS system process) LaborFlag: Labor (QS system process) Datetime: 10/22/2016 12:11 NBP Sys/Myesha/Mean (mmHg): 100 (QS system process) NBP Sys/Myesha/Mean (mmHg): 96 (QS system process) : 61 (QS system process) : 58 (QS system process) : 74 (QS system process) : 72 (QS system process) Pulse: 83 (QS system process) Pulse: 80 (QS system process) Pulse: 88 (QS system process) SpO2 (%): 96 (QS system process) LaborFlag: Labor (QS system process) Datetime: 10/22/2016 12:10 NBP Sys/Myesha/Mean (mmHg): 97 (QS system process) : 59 (QS system process) : 72 (QS system process) Pulse: 81 (QS system process) LaborFlag: Labor (QS system process) Datetime: 10/22/2016 12:08 NBP Sys/Myesha/Mean (mmHg): 94 (QS system process) : 58 (QS system process) : 71 (QS system process) Pulse: 75 (QS system process) LaborFlag: Labor (QS system process) Datetime: 10/22/2016 12:07 NBP Sys/Myesha/Mean (mmHg): 102 (QS system process) : 58 (QS system process) : 75 (QS system process) Pulse: 73 (QS system process) LaborFlag: Labor (QS system process) Datetime: 10/22/2016 12:06 NBP Sys/Myesha/Mean (mmHg): 100 (QS system process) : 56 (QS system process) : 72 (QS system process) Pulse: 75 (QS system process) Pulse: 74 (QS system process) SpO2 (%): 96 (QS system process) LaborFlag: Labor (QS system process) Datetime: 10/22/2016 12:05 NBP Sys/Myesha/Mean (mmHg): 93 (QS system process) NBP Sys/Myesha/Mean (mmHg): 95 (QS system process) : 53 (QS system process) : 55 (QS system process) : 68 (QS system process) : 70 (QS system process) Pulse: 82 (QS system process) Pulse: 78 (QS system process) LaborFlag: Labor (QS system process) Datetime: 10/22/2016 12:03 NBP Sys/Myesha/Mean (mmHg): 101 (QS system process) NBP Sys/Myesha/Mean (mmHg): 104 (QS system process) : 60 (QS system process) : 58 (QS system process) : 74 (QS system process) : 75 (QS system process) Pulse: 76 (QS system process) Pulse: 79 (QS system process) LaborFlag: Labor (QS system process) Datetime: 10/22/2016 12:02 NBP Sys/Myesha/Mean (mmHg): 98 (QS system process) : 64 (QS system process) : 76 (QS system process) Pulse: 96 (QS system process) LaborFlag: Labor (QS system process) Datetime: 10/22/2016 12:01 NBP Sys/Myesha/Mean (mmHg): 111 (QS system process) : 70 (QS system process) : 84 (QS system process) Pulse: 101 (QS system process) Pulse: 95 (QS system process) SpO2 (%): 96 (QS system process) LaborFlag: Labor (QS system process) Datetime: 10/22/2016 12:00 Monitor Mode: External; Palpation (Rayne Valladares RN) Frequency (min): 2-7 (Rayne Valladares RN) Quality: Mild/Moderate (Rayne Valladares RN) Duration (sec): 70-110 (Rayne Valladares RN) Duration Criteria: Less than Two 120 Second Contractions (Rayne Valladares RN) Pattern: Normal: <= 5 Contractions in 10 Minutes (Rayne Valladares RN) Resting Tone (Palpate): Relaxed (Rayne Valladares RN) Monitor Mode: External US (Rayne Valladares RN) Comments: tracing maternal HR, RN at bedside, pulse oximeter on (Rayne Valladares RN) Pitocin (milliunit): Pitocin Remains (milliunits) @ (Annotations: 3) (Rayne Valladares RN)
--- NOTE | 2016-10-22 14:27 | L&D Progress Notes ---
PROGRESS NOTES Datetime Report Generated by CPN: 10/22/2016 14:27 PROGRESS NOTE Impression: Normal Progression of Labor; Reassuring Heart Rate; Rupture of Membranes Procedures: Artificial ROM; Scalp Electrode Plan: Continue Present Management Informed Consent Obtained: Vaginal Delivery Vital Signs : Reviewed Comment: cooks cath out AROM clear comfortable with epidural continue pitocin anticipate VAGINAL EXAM Dilatation: 7 Dilatation: 1 Effacement: 90 Station: 0 Contractions: 2-5 Contractions: irregular MEMBRANES Membranes: Ruptured Membranes: Intact Amniotic Fluid Color: Clear FETUS A FHR - Baseline: 7 Monitoring: External US Variability: Moderate 6-25bpm Accelerations: 15X15 Decelerations: None FHR Category: Category I Estimated Weight (gm): 3600 Presentation: Vertex SIGNATURE SIGNATURE: [id number] Assignment: Berenice Contreras MD Signature: with User ID: [email or web address] : with User ID: [email or web address]
[2016-10-22] MEDS ORDERED: LIDOCAINE 2% INJ-PF (20 MG/ML) 10 ML AMPUL ONE (15:51)
--- NOTE | 2016-10-22 15:52 | L&D Progress Notes ---
PROGRESS NOTES Datetime Report Generated by CPN: 10/22/2016 15:52 PROGRESS NOTE Procedures: Sterile Vag Exam Plan: Continue Present Management Vital Signs : Reviewed Comment: decel to the 90's for 3 min., resolved with position change, maintained moderate variability FSE placed Continue present mgmt VAGINAL EXAM Dilatation: 6 Effacement: 90 Station: 0 Contractions: 2 min FETUS A FHR - Baseline: 120 Monitoring: External US Variability: Moderate 6-25bpm Accelerations: 15X15 Decelerations: Variable FHR Category: Category II FETUS C SIGNATURE: [id number] Assignment: Berenice Contreras MD Signature: with User ID: Kobe : with User ID: Kobe
--- NOTE | 2016-10-22 16:01 | L&D Flow Sheet ---
LD Flowsheet Datetime Report Generated by CPN: 10/22/2016 16:00 Datetime: 10/22/2016 15:59 NBP Sys/Myesha/Mean (mmHg): 119 (QS system process) : 79 (QS system process) : 92 (QS system process) Pulse: 99 (QS system process) LaborFlag: Labor (QS system process) Datetime: 10/22/2016 15:58 Communication Comments: Dr. Vlad at bedside (Rayne Valladares, RN) Datetime: 10/22/2016 15:48 Communication Comments: patient states pain is 4/5, Dr. Chekan notified and en route to patient's bedside (Rayne Valladares, RN) Datetime: 10/22/2016 15:47 Monitor Interventions for FHR: FSE Applied (Rayne Valladares, RN) Datetime: 10/22/2016 15:44 NBP Sys/Myesha/Mean (mmHg): 144 (QS system process) : 62 (QS system process) : 89 (QS system process) Pulse: 71 (QS system process) LaborFlag: Labor (QS system process) Datetime: 10/22/2016 15:39 Dilatation (cm): 7.0 (Rayne Valladares, RN) Effacement (%): 90 (Rayne Valladares, RN) Station: 0 (Rayne Valladares RN) Exam by: H. Jared, CNM (Rayne Valladares, RN) Datetime: 10/22/2016 15:37 Communication Comments: patient called out and states she feels constant pressure (Rayne Valladares, RN) Datetime: 10/22/2016 15:30 NBP Sys/Myesha/Mean (mmHg): 125 (QS system process) : 53 (QS system process) : 77 (QS system process) Pulse: 72 (QS system process) LaborFlag: Labor (QS system process) Datetime: 10/22/2016 15:15 Monitor Mode: External; Palpation (Rayne Valladares RN) Frequency (min): 3-6 (Rayne Valladares RN) Quality: Mild/Moderate (Rayne Valladares RN) Duration (sec): 60-70 (Rayne Valladares RN) Duration Criteria: Less than Two 120 Second Contractions (Rayne Valladares RN) Pattern: Normal: <= 5 Contractions in 10 Minutes (Rayne Valladares RN) Resting Tone (Palpate): Relaxed (Rayne Valladares RN) Monitor Mode: External US (Rayne Valladares RN) FHR Baseline Rate : 130 (Rayne Valladares RN) FHR Baseline Changes: No Baseline Change (Rayne Valladares RN) Variability: Moderate 6-25 bpm (Rayne Valladares RN) Accelerations: 15X15 (Rayne Valladares RN) Decelerations: Early (Rayne Valladares RN) Pitocin (milliunit): Pitocin Increased to (milliunits) @ (Annotations: 14) (Rayne Valladares RN) Datetime: 10/22/2016 15:14 NBP Sys/Myesha/Mean (mmHg): 106 (QS system process) : 64 (QS system process) : 77 (QS system process) Pulse: 71 (QS system process) LaborFlag: Labor (QS system process) Datetime: 10/22/2016 15:00 Monitor Mode: External; Palpation (Rayne Valladares RN) Frequency (min): 1.5-6 (Rayne Valladares RN) Quality: Mild/Moderate (Rayne Valladares RN) Duration Criteria: Less than Two 120 Second Contractions (aRyne Valladares RN) Pattern: Normal: <= 5 Contractions in 10 Minutes (Rayne Valladares RN) Resting Tone (Palpate): Relaxed (Rayne Valladares RN) Monitor Mode: External US (Rayne Valladares RN) FHR Baseline Rate : 130 (Rayne Valladaers RN) FHR Baseline Changes: No Baseline Change (Rayne Valladares RN) Variability: Moderate 6-25 bpm (Rayne Valladares RN) Accelerations: None (Rayne Valladares RN) Decelerations: Early (Rayne Valladares RN) Pitocin (milliunit): Pitocin Increased to (milliunits) @ (Annotations: 12) (Rayne Valladares RN) Datetime: 10/22/2016 14:58 NBP Sys/Myesha/Mean (mmHg): 117 (QS system process) : 77 (QS system process) : 91 (QS system process) Pulse: 74 (QS system process) LaborFlag: Labor (QS system process) Datetime: 10/22/2016 14:45 Monitor Mode: External; Palpation (Ryane Valladares RN) Frequency (min): 2.5-6 (Rayne Valladares RN) Quality: Mild/Moderate (Rayne Valladares RN) Duration (sec): 50-70 (Rayne Valladares RN) Duration Criteria: Less than Two 120 Second Contractions (Rayne Valladares RN) Pattern: Normal: <= 5 Contractions in 10 Minutes (Rayne Valladares RN) Resting Tone (Palpate): Relaxed (Rayne Valladares RN) Monitor Mode: External US (Rayne Valladares RN) FHR Baseline Rate : 130 (Rayne Valladares RN) FHR Baseline Changes: No Baseline Change (Rayne Valladares RN) Variability: Moderate 6-25 bpm (Rayne Valladares RN) Accelerations: 10X10 (Rayne Valladares RN) Decelerations: Early (Rayne Valladares RN) Pitocin (milliunit): Pitocin Increased to (milliunits) @ (Annotations: 12) (Rayne Valladares RN) Datetime: 10/22/2016 14:43 NBP Sys/Myesha/Mean (mmHg): 120 (QS system process) : 78 (QS system process) : 93 (QS system process) Pulse: 75 (QS system process) LaborFlag: Labor (QS system process) Datetime: 10/22/2016 14:30 Monitor Mode: External; Palpation (Rayne Valladares RN) Frequency (min): 2-6 (Rayne Valladares RN) Quality: Mild/Moderate (Rayne Valladares RN) Duration (sec): 60-70 (Rayne Valladares RN) Duration Criteria: Less than Two 120 Second Contractions (Rayne Valladares RN) Pattern: Normal: <= 5 Contractions in 10 Minutes (Rayne Valladares RN) Resting Tone (Palpate): Relaxed (Rayne Valladares RN) Monitor Mode: External US (Rayne Valladares RN) FHR Baseline Rate : 130 (Rayne Valladares RN) FHR Baseline Changes: No Baseline Change (Rayne Valladares RN) Variability: Moderate 6-25 bpm (Rayne Valladares RN) Accelerations: 15X15 (Rayne Blaine, RN) Decelerations: None (Rayne Valladares, RN) Pitocin (milliunit): Pitocin Remains (milliunits) @ (Annotations: 10) (Rayne Blaine, RN) Datetime: 10/22/2016 14:28 NBP Sys/Myesha/Mean (mmHg): 127 (QS system process) : 81 (QS system process) : 97 (QS system process) Pulse: 76 (QS system process) LaborFlag: Labor (QS system process) Datetime: 10/22/2016 14:18 Patient Position/Activity: Left Extreme; Peanut Ball; Low Fowlers (Rayne Valladares, RN) Datetime: 10/22/2016 14:15 Monitor Mode: External; Palpation (Rayne Valladares RN) Quality: Mild/Moderate (Rayne Valladares RN) Pattern: Normal: <= 5 Contractions in 10 Minutes (Rayne Valladares RN) Resting Tone (Palpate): Relaxed (Rayne Valladares RN) Contraction Comments: unable to determine due to patient position, RN at bedside (Rayne Valladares RN) Monitor Mode: External US (Rayne Valladares RN) FHR Baseline Rate : 125 (Rayne Valladraes RN) FHR Baseline Changes: No Baseline Change (Rayne Valladares RN) Variability: Moderate 6-25 bpm (Rayne Valladares RN) Accelerations: 15X15 (Rayne Valladares RN) Decelerations: None (Rayne Valladares RN) Pitocin (milliunit): Pitocin Increased to (milliunits) @ (Annotations: 10) (Rayne Valladares RN) Datetime: 10/22/2016 14:09 Membrane Status: Ruptured (Rayne Valladares RN) Membranes Rupture Method: Artificial (Rayne Valladares RN) Amniotic Fluid Color: Clear (Rayne Valladares RN) Amniotic Fluid Amount: Large (Rayne Valladares RN) Amniotic Fluid Odor: Normal (Rayne Valladares RN) Datetime: 10/22/2016 14:07 Dilatation (cm): 6.5 (Rayne Valladares RN) Effacement (%): 90 (Rayne Valladares RN) Station: 0 (Rayne Valladares RN) Exam by: Marcos Coleman CNM (Rayne Valladares RN) Datetime: 10/22/2016 14:06 Communication: RN at Bedside; Provider at Bedside (Rayne Valladares RN) Communication Comments: Marcos Coleman CNM at bedside (Rayne Valladares RN) Datetime: 10/22/2016 14:00 Monitor Mode: External; Palpation (Rayne Valladares RN) Frequency (min): 2.5-3.5 (Rayne Valladares RN) Quality: Mild/Moderate (Rayne Valladares RN) Duration (sec): 60-80 (Rayne Valladares RN) Duration Criteria: Less than Two 120 Second Contractions (Rayne Valladares RN) Pattern: Normal: <= 5 Contractions in 10 Minutes (Rayne Valladares RN) Resting Tone (Palpate): Relaxed (Rayne Valladares RN) Monitor Mode: External US (Rayne Valladares RN) FHR Baseline Rate : 130 (Rayne Valladares RN) FHR Baseline Changes: No Baseline Change (Rayne Valladares RN) Variability: Moderate 6-25 bpm (Rayne Valladares RN) Accelerations: None (Rayne Valladares RN) Decelerations: None (Rayne Valladares RN) Pitocin (milliunit): Pitocin Remains (milliunits) @ (Annotations: 8 ) (Rayne Valladares RN)
[2016-10-22] MEDS ORDERED: OXYTOCIN/NORMAL SALINE 20 UNIT/1,000 ML RTUINJ ONE (16:07)
[2016-10-22] MEDS ORDERED: MISOPROSTOL 0.2 MG TABLET ONE (16:07)
[2016-10-22] MEDS ORDERED: LIDOCAINE 1% INJ-PF (10 MG/ML) 30 ML SDV ONE (16:07)
--- NOTE | 2016-10-22 18:01 | L&D Flow Sheet ---
LD Flowsheet Datetime Report Generated by CPN: 10/22/2016 18:00 Datetime: 10/22/2016 17:59 NBP Sys/Myesha/Mean (mmHg): 98 (QS system process) : 65 (QS system process) : 75 (QS system process) Pulse: 73 (QS system process) LaborFlag: Labor (QS system process) Datetime: 10/22/2016 17:44 NBP Sys/Myesha/Mean (mmHg): 109 (QS system process) : 51 (QS system process) : 73 (QS system process) Pulse: 100 (QS system process) LaborFlag: Labor (QS system process) Datetime: 10/22/2016 17:39 NBP Sys/Myesha/Mean (mmHg): 122 (QS system process) : 73 (QS system process) : 92 (QS system process) Pulse: 83 (QS system process) LaborFlag: Labor (QS system process) Datetime: 10/22/2016 17:29 NBP Sys/Myesha/Mean (mmHg): 129 (QS system process) : 80 (QS system process) : 99 (QS system process) Pulse: 100 (QS system process) LaborFlag: Labor (QS system process) Datetime: 10/22/2016 17:12 Stage 2 Comments: viable male , placed to mothers chest, lusty cry noted (Rayne Blaine, RN) Datetime: 10/22/2016 17:10 Pushing: Coached on Pushing; No Urge to Push (Rayne Valladares, RN) Pushing Position: Pushing with Contractions; Pushing Lithotomy (Rayne Blaine, RN) Pushing Progress: Presenting Part Visible; with Pushing; Pushing Effectively with Contractions (Rayne Blaine, RN) Datetime: 10/22/2016 16:57 Pushing: Coached on Pushing; Urge to Push (Rayne Blaine, RN) Pushing Position: Pushing with Contractions; Pushing Lithotomy (Rayne Blaine, RN) Pushing Progress: Descent with Pushing; Presenting Part Visible; with Pushing; Pushing Effectively with Contractions (Rayne Valladares, RN) Datetime: 10/22/2016 16:49 Pushing: Coached on Pushing; Urge to Push (Rayne Valladares, RN) Pushing Position: Pushing with Contractions; Pushing Lithotomy (Rayne Valladares, RN) Pushing Progress: Descent with Pushing; Presenting Part Visible (Rayne Valladares, RN) Datetime: 10/22/2016 16:44 NBP Sys/Myesha/Mean (mmHg): 124 (QS system process) : 87 (QS system process) : 101 (QS system process) Pulse: 102 (QS system process) Pushing: Coached on Pushing (Rayne Valladares, RN) Pushing Position: Pushing with Contractions; Pushing Lithotomy (Rayne Valladares, RN) LaborFlag: Labor (QS system process) Datetime: 10/22/2016 16:43 Dilatation (cm): 10.0 (Rayne Valladares, RN) Effacement (%): 100 (Rayne Valladares, RN) Station: 2 (Rayne Valladares, RN) Exam by: Marcos Coleman CNM (Rayne Valladares, RN) Datetime: 10/22/2016 16:30 Monitor Mode: External; Palpation (Rayne Valladares, RN) Frequency (min): 1-2.5 (Rayne Valladares, RN) Quality: Moderate (Rayne Valladares, RN) Duration (sec): 60-70 (Rayne Valladares, RN) Duration Criteria: Less than Two 120 Second Contractions (Rayne Valladares, RN) Pattern: Normal: <= 5 Contractions in 10 Minutes (Rayne Valladares, RN) Resting Tone (Palpate): Relaxed (Rayne Valladares, RN) Monitor Mode: External US (Rayne Valladares, RN) FHR Baseline Rate : 130 (Rayne Valladares, RN) FHR Baseline Changes: No Baseline Change (Rayne Valladares, RN) Variability: Moderate 6-25 bpm (Rayne Valladares, RN) Accelerations: 10X10 (Rayne Valladares, RN) Decelerations: Early (Rayne Valladares, RN) Datetime: 10/22/2016 16:28 NBP Sys/Myesha/Mean (mmHg): 117 (QS system process) : 75 (QS system process) : 91 (QS system process) Pulse: 90 (QS system process) LaborFlag: Labor (QS system process) Datetime: 10/22/2016 16:15 Monitor Mode: External; Palpation (Rayne Valladares RN) Frequency (min): 2-3 (Rayne Valladares RN) Quality: Mild/Moderate (Rayne Valladares RN) Duration (sec): 50-80 (Rayne Valladares RN) Duration Criteria: Less than Two 120 Second Contractions (Rayne Valladares, DEBORA) Pattern: Normal: <= 5 Contractions in 10 Minutes (Rayne Valladares RN) Resting Tone (Palpate): Relaxed (Rayne Valladares RN) Monitor Mode: External US (Rayne Valladares RN) FHR Baseline Rate : 130 (Rayne Valladares RN) FHR Baseline Changes: No Baseline Change (Rayne Valladares RN) Variability: Moderate 6-25 bpm (Rayne Valladares RN) Accelerations: 15X15 (Rayne Valladares RN) Decelerations: Early (Rayne Valladares RN) Datetime: 10/22/2016 16:13 NBP Sys/Myesha/Mean (mmHg): 107 (QS system process) : 64 (QS system process) : 80 (QS system process) Pulse: 72 (QS system process) LaborFlag: Labor (QS system process) Datetime: 10/22/2016 16:10 Temperature (F): 98.3 (Rayne Valladares RN) Temperature (C): 36.8 (QS system process) Temperature Route: Oral (Rayne Valladares RN) LaborFlag: Labor (QS system process) Datetime: 10/22/2016 16:00 Monitor Mode: External; Palpation (Rayne Valladares RN) Frequency (min): 2.5-3 (Rayne Valladares RN) Quality: Mild/Moderate (Rayne Valladares RN) Duration Criteria: Less than Two 120 Second Contractions (Rayne Valladares RN) Pattern: Normal: <= 5 Contractions in 10 Minutes (Rayne Valladares RN) Resting Tone (Palpate): Relaxed (Rayne Valladares RN) Monitor Mode: Internal Scalp Electrode (Rayne Valladares RN) FHR Baseline Rate : 130 (Rayne Valladares RN) FHR Baseline Changes: No Baseline Change (Rayne Valladares RN) Variability: Moderate 6-25 bpm (Rayne Valladares RN) Accelerations: 15X15 (Rayne Valladares RN) Decelerations: Early (Rayne Valladares RN) Communication Comments: 6 mL 2% Lidocaine bolus per Dr. Chu, T10 (Rayne Valladares RN)
[2016-10-22] MEDS ORDERED: MEASLES,MUMPS&RUBELLA VACC/PF 0.5 ML VIAL SUBCUT PRN (18:31)
[2016-10-22] MEDS ORDERED: DIPH/PERTUSS(ACELL)/TETANUS VAC/PF 0.5 ML SYR (>=10YO) IM PRN (18:31)
[2016-10-22] MEDS ORDERED: BENZOCAINE/MENTHOL AEROSOL SPRAY 56 ML TOP PRN (18:31)
[2016-10-22] MEDS ORDERED: OXYTOCIN/NORMAL SALINE 1,000 ML IV PRN (18:31)
[2016-10-22] MEDS ORDERED: DIBUCAINE 1% OINTMENT 28 GM TP PRN (18:31)
--- NOTE | 2016-10-22 20:01 | L&D Flow Sheet ---
LD Flowsheet Datetime Report Generated by CPN: 10/22/2016 20:00 Datetime: 10/22/2016 19:44 NBP Sys/Myesha/Mean (mmHg): 126 (QS system process) : 80 (QS system process) : 98 (QS system process) Pulse: 90 (QS system process) LaborFlag: Antepartum (QS system process) Datetime: 10/22/2016 19:34 Communication Comments: report given to Vesna Ley RN. Care relinquished (Rayne Blaine, RN) Datetime: 10/22/2016 19:28 NBP Sys/Myesha/Mean (mmHg): 119 (QS system process) : 76 (QS system process) : 93 (QS system process) Pulse: 99 (QS system process) LaborFlag: Antepartum (QS system process) Datetime: 10/22/2016 19:13 NBP Sys/Myesha/Mean (mmHg): 121 (QS system process) : 77 (QS system process) : 94 (QS system process) Pulse: 86 (QS system process) LaborFlag: Antepartum (QS system process) Datetime: 10/22/2016 18:58 NBP Sys/Myesha/Mean (mmHg): 121 (QS system process) : 78 (QS system process) : 95 (QS system process) Pulse: 85 (QS system process) LaborFlag: Antepartum (QS system process) Datetime: 10/22/2016 18:43 NBP Sys/Myesha/Mean (mmHg): 120 (QS system process) : 74 (QS system process) : 92 (QS system process) Pulse: 86 (QS system process) LaborFlag: Antepartum (QS system process) Datetime: 10/22/2016 18:28 NBP Sys/Myesha/Mean (mmHg): 114 (QS system process) : 72 (QS system process) : 86 (QS system process) Pulse: 87 (QS system process) LaborFlag: Antepartum (QS system process) Datetime: 10/22/2016 18:15 Stage of : Antepartum (Rayne Blaine, RN) Datetime: 10/22/2016 18:13 NBP Sys/Myesha/Mean (mmHg): 112 (QS system process) : 71 (QS system process) : 88 (QS system process) Pulse: 77 (QS system process)
[2016-10-22] MEDS ORDERED: ACETAMINOPHEN WITH CODEINE #3 TABLET ONE (20:08)
[2016-10-22] MEDS ORDERED: IBUPROFEN 800 MG TABLET ONE (20:08)
[2016-10-22] MEDS: ACETAMINOPHEN WITH CODEINE #3 TABLET PO PRN (20:13)
[2016-10-22] MEDS: IBUPROFEN 800 MG TABLET PO SCH (20:13)
--- NOTE | 2016-10-22 22:01 | L&D Flow Sheet ---
LD Flowsheet Datetime Report Generated by CPN: 10/22/2016 22:00 Datetime: 10/22/2016 20:13 Pain Scale: 3 (Myrna Ley RN) Pain Presence: Constant (Myrna Ley RN) Pain Type: Ache (Myrna Ley RN) Pain Location: Perineum (Myrna Ley RN) LaborFlag: Antepartum (QS system process)
--- NOTE | 2016-10-22 22:23 | Admission Physical ---
Datetime Report Generated by CPN: 10/22/2016 22:23 CURRENT ADMISSION Hx Assessment: The History has been Reviewed and is Current Chief Complaint: Scheduled Induction of Labor Indication for Induction: Post Dates Admit Plan: Admit to Unit; Initiate Labor Induction Protocol ALLERGIES Medication Allergies: No Medication Allergies: No Known Allergies (05/03/2016) Medication Allergies: Chromic Gut Latex: Latex Allergies OBSTETRICAL HISTORY EDC: 10/15/2016 00:00 : 1 Para: 0 Gestational Diabetes: No Rh Sensitization: No Incompetent Cervix: No FRANK: No Infertility: No ART Treatment: No Uterine Anomaly: No IUGR: No Hx Previous C/S: No Macrosomia: No Hx Loss/Stillborn: No PIH: No Hx : No Placenta Previa/Abruption: No Depression/PP Depression: No PTL/PROM: No Post Hemorrhage: No Current Procedures: Ultrasound SEE RECORDS Alcohol: No Marijuana : No Cocaine: No Other Illicit Drugs: No Cigarettes: Never Smoker. 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 Heart Disease: No Hosp/Surgery: Yes Autoimmune Disorder: No Anesthetic Complications: No Kidney Disease: No Abnormal Pap Smear: No Neuro/Epilepsy: No Psychiatric Disorders: No Other Medical Diseases: No Hepatitis/Liver Disease: No Significant Family History: No Varicosities/Phlebitis: No Trauma/Violence : No Thyroid Dysfunction: No Medical History Comments: ACL reconstruction INFECTIOUS HISTORY Gonorrhea: No Genital Herpes: No Chlamydia: No Tuberculosis: No Syphilis: No Hepatitis: No HIV/AIDS Exposure: No Rash or Viral Illness: No HPV: No PHYSICAL EXAM General: Normal HEENT: Normal Neurologic: Normal Thyroid: Deferred Heart: Normal Lungs: Normal Breast: Normal Back: Normal Abdomen: Normal Genitourinary Exam: Normal Extremities: Normal DTRs: Normal Pelvic Type: Adequate Vital Signs: Reviewed VAGINAL EXAM Dilatation: 6 Dilatation: 7 Dilatation: 1 Effacement: 90 Effacement: 90 Station: 0 Station: 0 Contraction Comments: 2 min Contraction Comments: 2-5 Contraction Comments: irregular MEMBRANES Membranes: Ruptured Membranes: Intact Amniotic Fluid Color: Clear FETUS A EGA: 41.0 Monitoring: External US FHR- Baseline: 135 Variability: Moderate 6-25bpm Accelerations: 15X15 Decelerations: None FHR Category: Category I Estimated Weight (gm): 3600 Presentation: Vertex Admit Comment: allergy to chromic gut see chart for complete hx Iol for post dates, care uncomplicated gbs negative cervidil removed, 1/thick/high-> baird bulb and po cytotec PLANS FOR LABOR AND DELIVERY Labor and Delivery: None Pain Management: Epidural Feeding Preference: Breast Benefit of Breast Feed Discussed: Yes Circumcision: Yes INFORMED CONSENT Informed Consent Obtained: Vaginal Delivery Assignment: Cynthia Aguirre MD Signature: with User ID: Kobe : with User ID: Kobe
[2016-10-23] MEDS: ACETAMINOPHEN WITH CODEINE #3 TABLET PO PRN ×4 (00:19→22:58)
[2016-10-23] MEDS: IBUPROFEN 800 MG TABLET PO SCH ×3 (06:03→22:57)
--- NOTE | 2016-10-23 07:01 | L&D Flow Sheet ---
LD Flowsheet Datetime Report Generated by CPN: 10/23/2016 07:00 Datetime: 10/22/2016 22:29 Stage of : Recovery (Myrna Av, RN) Datetime: 10/22/2016 22:00 NBP Sys/Myesha/Mean (mmHg): 110 (QS system process) : 58 (QS system process) : 78 (QS system process) Pulse: 73 (QS system process) Temperature (F): 98.3 (Myrna Ley RN) Temperature (C): 36.8 (QS system process) Temperature Route: Oral (Myrna Av, RN) Datetime: 10/22/2016 21:10 Pain Scale: 2 (Myrna Av, RN) Pain Presence: Constant (Myrna Av, RN) Pain Type: Ache (Myrna Av, RN) Pain Location: Perineum (Myrna Av, RN) Pain Assessment Comments: pt. denies needs for further medication at this time (Myrna Av, RN) Datetime: 10/22/2016 20:13 Pain Scale: 3 (Myrna Av, RN) Pain Presence: Constant (Myrna Av, RN) Pain Type: Ache (Myrna Av, RN) Pain Location: Perineum (Myrna Av, RN) Datetime: 10/22/2016 20:00 Stage of : Recovery (Myrna Va, RN) Datetime: 10/22/2016 19:44 NBP Sys/Myesha/Mean (mmHg): 126 (QS system process) : 80 (QS system process) : 98 (QS system process) Pulse: 90 (QS system process) LaborFlag: Antepartum (QS system process) Datetime: 10/22/2016 19:34 Communication Comments: report given to K. Av, RN. Care relinquished (Rayne Valladares, RN) Datetime: 10/22/2016 19:28 NBP Sys/Myesha/Mean (mmHg): 119 (QS system process) : 76 (QS system process) : 93 (QS system process) Pulse: 99 (QS system process) LaborFlag: Antepartum (QS system process) Datetime: 10/22/2016 19:15 Pain Scale: 2 (Myrna Av, RN) Pain Presence: Constant (Myrna Av, RN) Pain Type: Ache (Myrna Av, RN) Pain Location: Perineum (Myrna Av, RN) LaborFlag: Antepartum (QS system process) Datetime: 10/22/2016 19:13 NBP Sys/Myesha/Mean (mmHg): 121 (QS system process) : 77 (QS system process) : 94 (QS system process) Pulse: 86 (QS system process) LaborFlag: Antepartum (QS system process)
[2016-10-23 07:28] LABS: HEMATOCRIT 30.7 % (36.0-47.0); HEMOGLOBIN 10.3 g/dL (12.0-15.5); HGB HCT DIFFERENCE 0.2; MEAN CORPUSCULAR HEMOGLOBIN 26.6 pg (27.0-33.4); MEAN CORPUSCULAR HGB CONC 33.5 g/dL (32.0-36.0); MEAN CORPUSCULAR VOLUME 79 fl (80-97); RED BLOOD COUNT 3.88 10^6/uL (3.72-5.28); RED CELL DISTRIBUTION WIDTH 15.5 % (11.5-14.0); WHITE BLOOD COUNT 11.9 10^3/uL (4.0-10.5)
[2016-10-23] MEDS: PRENATAL VITAMIN W-O CA NO5/FE FUMARATE/FA CAPSULE PO SCH (09:20)
[2016-10-23] MEDS: FERROUS SULFATE 325 MG TABLET PO SCH ×2 (09:21→17:05)
[2016-10-23] MEDS: SENNOSIDES/DOCUSATE 8.6-50 MG 1 EACH TABLET PO SCH (09:21)
[2016-10-23] MEDS: DOCUSATE SODIUM 100 MG CAPSULE PO SCH ×2 (09:21→17:05)
--- NOTE | 2016-10-23 11:12 | PDOC PROGRESS REPORT ---
Subjective-OB Subjective: Post Delivery Day:1 20 year old. Denies any needs at this time lochia is stable, pain is well controlled, voiding without difficulty. Physical Exam (OB) Vital Signs: Temp Pulse Resp BP Pulse Ox 97.8 F 101 H 16 109/71 97 10/23/16 07:47 10/23/16 07:47 10/23/16 07:47 10/23/16 07:47 10/23/16 07:47 Intake & Output 10/22/16 10/23/16 10/24/16 06:59 06:59 06:59 Weight 86.183 kg - Lochia Lochia Amount: Moderate 25-50 ml Lochia Color: Rubra/Red - Abdomen Description: Tender, Soft, Round Hernia Present: No Fundal Description: Firm, Midline Fundal Height: u/u - u/2 Objective-Diagnostic Laboratory: 10/23/16 07:04 10/23/16 07:04 WBC 11.9 H RBC 3.88 Hgb 10.3 L Hct 30.7 L MCV 79 L MCH 26.6 L MCHC 33.5 RDW 15.5 H Plt Count 160 Assessment and Plan(PN) - Assessment and Plan (1) Vaginal delivery Is this a current diagnosis for this admission?: YesPlan: routine pp care - Time Spent with Patient Time with patient: Less than 15 minutes Critical Time spent with patient: Less than 15 minutes Medications reviewed and adjusted accordingly: Yes - Disposition Anticipated Discharge: Home Within: within 24 hours
--- NOTE | 2016-10-23 18:01 | L&D Current Admission ---
Current Admit Datetime Report Generated by CPN: 10/23/2016 18:00 ADMISSION INFORMATION Reason for Admission: Induction of Labor (10/22/2016 01:52:Rebecca Rainey RN) Chief Complaint: Scheduled Induction of Labor (10/22/2016 01:21:Rebecca Rainey RN) Method of Arrival: Ambulatory (10/22/2016 01:52:Rebecca Rainey RN) Admitted From: Home (10/22/2016 01:52:Rebecca Rainey RN) Reason for Induction: Postterm (10/22/2016 01:52:Rebecca Rainey RN) Records Available: Yes (10/22/2016 01:52:Rebecca Rainey RN) General Admission Information: Reviewed (10/22/2016 01:52:Rebecca Rainey RN) BELONGINGS/ADVANCED DIRECTIVES Other Belongings: see belonging consent (10/22/2016 01:52:Rebecca Rainey RN) Disposition of Belongings: Kept with Patient (10/22/2016 01:52:Rebecca Rainey RN) Advance Direct for Healthcare: No, and Wants No Information (10/22/2016 01:52:Rebecca Rainey RN) Durable Power of Medical Technologist: No (10/22/2016 01:52:Rebecca Rainey RN) Living Will: No (10/22/2016 01:52:Rebecca Rainey RN) Organ Donor: Yes (10/22/2016 01:52:Rebecca Rainey RN) Pt Rights Information Given: Yes (10/22/2016 01:52:Rebecca Rainey RN) Pt Understands Pt Rights: Yes (10/22/2016 01:52:Rebecca Rainey RN) LEARNING ASSESSMENT Knowledge Level: Understands L_D Process; Understands Care Activities; Understands Diagnosis (10/22/2016 01:52:Rebecca Rainey RN) Barriers to Learning: None (10/22/2016 01:52:Rebecca Rainey RN) Learning Readiness: Motivated (10/22/2016 01:52:Rebecca Rainey RN) Learns Best By: 1 to 1 Instruction (10/22/2016 01:52:Rebecca Rainey RN) Learning Needs: Labor and Delivery Process; Pain Management; Symptoms to Report; Treatment Plan; Medication; Diagnosis; Equipment; Infant Care; Community Resources (10/22/2016 01:52:Rebecca Rainey RN) DOMESTIC VIOLANCE SCREENING Dom Viol Threatened/Hurt: No (10/22/2016 01:52:Rebecca Rainey RN) Hx of Abuse/Neglect past 2yrs: No (10/22/2016 01:52:Rebecca Rainey RN) Feel Unsafe Going Home: No (10/22/2016 01:52:Rebecca Rainey RN) Addt'l Observ Indicating Abuse: No (10/22/2016 01:52:Rebecca Rainey RN) Reason Unable to Complete Screen: N/A, Screen Completed (10/22/2016 01:52:Rebecca Rainey RN) Considered Personal Harm/Suicide: No (10/22/2016 01:52:Rebecca Rainey RN) NUTRITIONAL/FUNCTIONAL SCREENING Problem with Appetite >5 Days: No (10/22/2016 01:52:Rebecca Rainey RN) Chew/Swallow Difficulties: No (10/22/2016 01:52:Rebecca Rainey RN) Inappropriate Wt Gain/Loss: No (10/22/2016 01:52:Rebecca Rainey RN) Presence Skin Breakdown/Ulcer: No (10/22/2016 01:52:Rebecca Rainey RN) Special Diet: No (10/22/2016 01:52:Rebecca Rainey RN) Pt Requests Electrical System Specialist Visit: No (10/22/2016 01:52:Rebecca Rainey RN) Hx of Any of the Following?: N/A (10/22/2016 01:52:Rebecca Rainey RN) New Diagnosis of: N/A (10/22/2016 01:52:Rebecca Rainey RN) Requires Assist w/Ambulation: No (10/22/2016 01:52:Rebecca Rainey RN) Uses Assist Device to Ambulate: No (10/22/2016 01:52:Rebecca Rainey RN) Pt Requires Help w/ADL's: No (10/22/2016 01:52:Rebecca Rainey RN)
--- NOTE | 2016-10-23 18:01 | L&D General Admission ---
General Admit Datetime Report Generated by CPN: 10/23/2016 18:00 INFORMATION Patient Age: 20 (08/26/2016 12:36:QS system process) EDC: 10/15/2016 00:00 (10/22/2016 01:15:Ellyn East RN) : 1 (10/22/2016 01:15:Elyln East RN) Para: 0 (10/22/2016 01:15:Ellyn East RN) Baby, Number in Womb: 1 (10/22/2016 01:15:Rayne Valladares RN) CARE [facility] Operations [facility] (10/22/2016 01:15:Ellyn East RN) Month of 1st Visit: February (10/22/2016 01:15:Rebecca Rainey RN) Adequate Care: Yes (10/22/2016 01:15:Rebecca Rainey RN) Height (in): 63 (10/22/2016 22:22:QS system process) ALLERGIES Medication Allergy: No (10/22/2016 01:15:Rebecca Rainey RN) Medication Allergies: No Known Allergies (05/03/2016) (10/22/2016 08:22:QS system process) Latex Allergy: Latex Allergies (10/22/2016 01:15:Rebecca Rainey RN) COMMUNICATION Primary Language: Ukrainian (10/22/2016 01:15:Rebecca Rainey RN) Communication Barrier(s): None (10/22/2016 01:15:Rebecca Ledgerwood, RN) DEMOGRAPHICS Address: [address] [place] [address] (10/22/2016 00:58:QS system process) Zipcode: [address] (10/22/2016 00:58:QS system process) Home (08/26/2016 12:36:QS system process) SSN: [id number] (08/26/2016 12:36:QS system process) Next of Kin Name: CROW BULLOCK (08/26/2016 12:36:QS system process) Next of Kin (08/26/2016 12:36:QS system process) Next of Kin Relationship: OR (08/26/2016 12:36:QS system process) Date of : 1995 (08/26/2016 12:36:QS system process) Marital Status: (08/26/2016 12:36:QS system process) Sex: Female (08/26/2016 12:36:QS system process) Race: (08/26/2016 12:36:QS system process) Ethnicity: Non- or (08/26/2016 12:36:QS system process) Temple: None (08/26/2016 12:36:QS system process) DRUG AND ALCOHOL USE Alcohol: No (10/22/2016 01:15:Rebecca Rainey RN) Cigarettes: Never Smoker. [id number] (10/22/2016 01:15:Rebecca Rainey RN) Marijuana: No (10/22/2016 01:15:Rebecca Rainey RN) Cocaine: No (10/22/2016 01:15:Rebecca Rainey RN) Other Illicit Drugs: No (10/22/2016 01:15:Rebecca Rainey RN) VACCINE HISTORY Influenza Vaccine: No (10/22/2016 01:15:Rebecca Rainey RN) Loose Hand Packer: [facility] (10/22/2016 01:15:Rebecca Rainey RN) Feeding Preference: Breast (10/22/2016 01:15:Rebecca Rainey RN) Benefit of Breast Feed Discussed: Yes (10/22/2016 01:15:Rebecca Rainey RN) Circumcision: Yes (10/22/2016 01:15:Rebecca Rainey RN) Classes Attended: No (10/22/2016 01:15:Rebecca Rainey RN) Tubal Ligation: No (10/22/2016 01:15:Rebecca Rainey RN) Tubal Authorization Signed: N/A (10/22/2016 01:15:Rebecca Rainey RN) Consent: N/A (10/22/2016 01:15:Rebecca Rainey RN) Consent Signed: N/A (10/22/2016 01:15:Rebecca Rainey RN) Pain Management Plans: Epidural (10/22/2016 01:15:Rebecca Rainey RN) Plans for Labor and Delivery: None (10/22/2016 01:15:Rebecca Rainey RN) Support Person: Beata (10/22/2016 01:15:Rebecca Rainey RN) Support Person Relationship: Mother (10/22/2016 01:15:Rebecca Rainey RN) Cultural/Spritual Practice: No (10/22/2016 01:15:Rebecca Rainey RN) Spir/Cult Dietary Needs: No (10/22/2016 01:15:Rebecca Rainey RN) LIVING SITUATION/DISCHARGE PLAN Living Arrangements: House (10/22/2016 01:15:Rebecca Rainey RN) Adequate Access to:: Electric; Heat; Refrigeration; Plumbing/Running water; Phone; Transportation (10/22/2016 01:15:Rebecca Rainey RN) WIC Program: Yes (10/22/2016 01:15:Rebecca Rainey RN) Discharge Scrub Nurse Person: mother (10/22/2016 01:15:Rebecca Rainey RN) Person to Help after Discharge: mother (10/22/2016 01:15:Rebecca Rainey RN) Currently Using Commun Resources: Yes (10/22/2016 01:15:Rebecca Rainey RN) Specify Current Resource Used: WIC (10/22/2016 01:15:Rebecca Rainey RN) Outside Agency/Tool Marker: No (10/22/2016 01:15:Rebecca Rainey RN) Car Seat for Discharge: Yes (10/22/2016 01:15:Rebecca Rainey RN) Adoption Requested: No (10/22/2016 01:15:Rebecca Rainey RN) Pt Contact w/infant Post : No (10/22/2016 01:15:Rebecca Rainey RN) LABS Blood Type: O Positive (10/22/2016 01:15:Ellyn East RN) Antibody Screen: negative (10/22/2016 01:15:Ellyn East RN) Hemoglobin: 10.3 L (10/23/2016 07:04:QS system process) Hematocrit: 30.7 L (10/23/2016 07:04:QS system process) MCV: 79 L (10/23/2016 07:04:QS system process) Group Beta Strep: negative (10/22/2016 01:15:Ellyn East RN) Gonorrhea: Negative (10/22/2016 01:15:Ellyn East RN) Chlamydia: Negative (10/22/2016 01:15:Ellyn East RN) RPR/VDRL: Nonreactive (10/22/2016 01:15:Ellyn East RN) HIV Exposure Test: Negative (10/22/2016 01:15:Ellyn East RN) Hepatitis B: Negative (10/22/2016 01:15:Ellyn East RN) Rubella: Immune (10/22/2016 01:15:Ellyn East RN) OB/PREVIOUS HISTORY Current Procedures: Ultrasound (10/22/2016 01:15:Rebecca Rainey RN) History of Previous : No (10/22/2016 01:15:Rebecca Rainey RN) History of Gestational Diabetes: No (10/22/2016 01:15:Rebecca Rainey RN) History of PIH: No (10/22/2016 01:15:Rebecca Rainey RN) History of Incompetent Cervix: No (10/22/2016 01:15:Rebecca Rainey RN) History of Placenta Previa/Abrup: No (10/22/2016 01:15:Rebecca Rainey RN) History of Macrosomia: No (10/22/2016 01:15:Rebecca Rainey RN) History of IUGR: No (10/22/2016 01:15:Rebecca Rainey RN) History of Hemorrhage: No (10/22/2016 01:15:Rebecca Rainey RN) History of Loss/Stillborn: No (10/22/2016 01:15:Rebecca Rainey RN) History of : No (10/22/2016 01:15:Rebecca Rainey RN) History of D (Rh) Sensitization: No (10/22/2016 01:15:Rebecca Rainey RN) History Recurrent Loss/Stillborn: No (10/22/2016 01:15:Rebecca Rainey RN) History Depression/PP Depression: No (10/22/2016 01:15:Rebecca Rainey RN) History of Uterine Anomaly/FRANK: No (10/22/2016 01:15:Rebecca Rainey RN) History of Infertility: No (10/22/2016 01:15:Rebecca Rainey RN) History of ART Treatment: No (10/22/2016 01:15:Rebecca Rainey RN) History of FRANK: No (10/22/2016 01:15:Rebecca Rainey RN) MEDICAL HISTORY Med Hx Diabetes: No (10/22/2016 01:15:Rebecca Rainey RN) Med Hx Hypertension: No (10/22/2016 01:15:Rebecca Rainey RN) Med Hx Heart Disease: No (10/22/2016 01:15:Rebecca Rainey RN) Med Hx Autoimmune Disorder: No (10/22/2016 01:15:Rebecca Rainey RN) Med Hx Kidney Disease/UTI: No (10/22/2016 01:15:Rebecca Rainey RN) Med Hx Neurologic/Epilepsy: No (10/22/2016 01:15:Rebecca Rainey RN) Med Hx Psychiatric Disorders: No (10/22/2016 01:15:Rebecca Rainey RN) Med Hx Hepatitis/Liver Disease: No (10/22/2016 01:15:Rebecca Rainey RN) Med Hx Varicosities/Phlebitis: No (10/22/2016 01:15:Rebecca Rainey RN) Med Hx Thyroid Dysfunction: No (10/22/2016 01:15:Rebecca Rainey RN) Med Hx Trauma/Violence: No (10/22/2016 01:15:Rebecca Rainey RN) Med Hx Blood Transfusion: No (10/22/2016 01:15:Rebecca Rainey RN) Med Hx Pulmonary (Asthma,TB): No (10/22/2016 01:15:Rebecca Rainey RN) Med Hx Breast: No (10/22/2016 01:15:Rebecca Rainey RN) Med Hx WEIGHER ALLOY Surgery: No (10/22/2016 01:15:Rebecca Rainey RN) Med Hx Hospitalization/Surgery: Yes (10/22/2016 01:15:Rebecca Rainey RN) Med Hx Anesthetic Complications: No (10/22/2016 01:15:Rebecca Rainey RN) Med Hx Abnormal Pap Smear: No (10/22/2016 01:15:Rebecca Rainey RN) Other Medical Diseases: No (10/22/2016 01:15:Rebecca Rainey RN) Med Hx Significant Family Hx: No (10/22/2016 01:15:Rebecca Rainey RN) Details of Med/Surg Hx: ACL reconstruction (10/22/2016 01:15:Rebecca Rainey RN) INFECTIOUS HISTORY Inf Hx Gonorrhea: No (10/22/2016 01:15:Rebecca Rainey RN) Inf Hx Chlamydia: No (10/22/2016 01:15:Rebecca Rainey RN) Inf Hx Syphilis: No (10/22/2016 01:15:Rebecca Rainey RN) Inf Hx HIV/AIDS: No (10/22/2016 01:15:Rebecca Rainey RN) Inf Hx Human Papilloma Virus: No (10/22/2016 01:15:Rebecca Rainey RN) Inf Hx Pt/Partner Genital Herpes: No (10/22/2016 01:15:Rebecca Rainey RN) Inf Hx Tuberculosis/Exposure: No (10/22/2016 01:15:Rebecca Rainey RN) Inf Hx Hepatitis B,C: No (10/22/2016 01:15:Rebecca Rainey RN) Inf Hx Rash or Viral Illness: No (10/22/2016 01:15:Rebecca Rainey RN) GENETIC HISTORY Gen Hx Age >=35 at VOLODYMYR: No (10/22/2016 01:15:Rebecca Rainey RN) Gen Hx Thalassemia: No (10/22/2016 01:15:Rebecca Rainey RN) Gen Hx Congenital Heart Defect: Yes (10/22/2016 01:15:Rebecca Rainey RN) Gen Hx Neural Tube Defect: No (10/22/2016 01:15:Rebecca Rainey RN) Gen Hx Down's Syndrome: No (10/22/2016 01:15:Rebecca Rainey RN) Gen Hx Gage-Sachs: No (10/22/2016 01:15:Rebecca Rainey RN) Gen Hx Branden: No (10/22/2016 01:15:Rebecca Rainey RN) Gen Hx Familial Dysautonomia: No (10/22/2016 01:15:Rebecca Rainey RN) Gen Hx Sickle Cell Disease/Trait: No (10/22/2016 01:15:Rebecca Rainey RN) Gen Hx Hemophilia/Blood Disorder: No (10/22/2016 01:15:Rebecca Rainey RN) Gen Hx Muscular Dystrophy: No (10/22/2016 01:15:Rebecca Rainey RN) Gen Hx Cystic Fibrosis: No (10/22/2016 01:15:Rebecca Rainey RN) Gen Hx Huntingtons Chorea: No (10/22/2016 01:15:Rebecca Rainey RN) Gen Hx Mental Retardation/Autism: No (10/22/2016 01:15:Rebecca Rainey RN) Gen Hx Tested for Fragile X: No (10/22/2016 01:15:Rebecca Rainey RN) Gen Hx Other Inher/Chromosomal: No (10/22/2016 01:15:Rebecca Rainey RN) Gen Hx Maternal Metabolic DO: No (10/22/2016 01:15:Rebecca Rainey RN) Gen Hx Pt Father or FOB Defect: No (10/22/2016 01:15:Rebecca Rainey RN) Gen Hx Other Genetic History: No (10/22/2016 01:15:Rebecca Rainey RN) Gen Hx Drugs/Meds since LMP: No (10/22/2016 01:15:Rebecca Rainey RN) Details of Genetic History: Down Syndrome from father's side (10/22/2016 01:15:Rebecca Rainey RN)
--- NOTE | 2016-10-23 18:16 | L&D Care Plan ---
LD CARE PLANS Datetime Report Generated by CPN: 10/23/2016 18:15 Datetime: 10/22/2016 02:30 Pain State: Risk For (Chelle Da Silva RN) Related To: Labor and Delivery Process; Treatment and Procedures (Chelle Da Silva RN) Goal(s): Patients Pain will be Assessed and Managed; Patient will Verbalize Adequate Relief of Pain or the Ability to [place] with Current Pain (Chelle Da Silva RN) Interventions: Assess Pain Severity on Scale of 0 (None) to 5 (Severe); Assess Type, Location and Intensity of Pain Each Time Client Reports Discomfort and Notify Provider if Unusal Pain Develops; Encourage Proper Breathing and Relaxation Techniques; Offer Alternatives Such as Repositioning, Calm Environment, Massages, Diversional Activities, Ice Pack, Splinting, and Ambulation; Administer Analgesics as Ordered; Assist with Epidural Placement as Appropriate; Evaluate Therapeutic Effectiveness of Medication and Treatments (Chelle Da Silva RN) Outcome: Patient will Report Absence or Relief of Pain Consistent with Established Pain Goal (Chelle Da Silva RN) Outcome: Patient will have a Decrease in Signs and Symptoms of Discomfort (Chelle Da Silva RN) Outcome: Pain will be Controlled During Procedures (Chelle Da Silva RN) Anxiety State: Risk For (Chelle Da Silva RN) Related To: Labor and Delivery Process; Perceived or Actual Threat to ; Fear of Unknown; Situational Crisis (Chelle Da Silva RN) Goal(s): Patient will have Decreased Anxiety and be able to Function at Acceptable Levels (Chelle Da Silva RN) Interventions: Assess Verbal and Nonverbal Behavioral Indicators of Anxiety; Assist Patient to Identify and Verbalize Symptoms of Anxiety; Identify and Demonstrate Techniques to Control Anxiety; Assist Patient with Coping Mechanisms to Manage Anxiety; Provide Theraputic Touch for the Patient; Explain to Patient, Using a Calm Reassuring Approach and Nonmedical Terms, All Activities, Procedures, and Concerns; Instruct Patient and Family about Post Discharge Care, Limitations, Symptoms to Report and Resources Available (Chelle Da Silva RN) Outcome: Patient will Identify, Verbalize and Demonstrate Techniques to Control Anxiety (Chelle Da Silva RN) Outcome: Patient's Posture, Facial Expressions, Gestures and Activity Level will Reflect Decreased Anxiety (Chelle Da Silva RN) Outcome: Patient will Verbalize a Sense of Control and/or Acceptance of the Situation (Chelle Da Silva RN) Outcome: Patient will Identify and Utilize Support Person (Chelle Da Silva RN) Knowledge Deficit State: Risk For (Chelle Da Silva RN) Related To: Labor and Delivery Process; Treatment and Procedures; Impending Alterations in Family Dynamics (Chelle Da Silva RN) Goal(s): Patient will Accurately Verbalize Understanding of Plan of Care and Treatment; Patient and Family will Accurately Verbalize Understanding of the Disease Process (Chelle Da Silva RN) Interventions: Assess Motivation and Willingness of Patient/Family to Learn; Assess Preferred Learning Mode: One to One Instruction, Reading, Videos, Group Discussion or Demonstration; Assess Barriers to Learning: Pain, Emotional State, Language Barrier, Cognitive Impairment, Visual or Hearing Deficits; Assess Patient and Family Knowledge of Disease Process, Medications and Treatment; Discuss Therapy and/or Treatment Options, Describe Rationale Behind Management, Therapy and Treatment Recommendations; Instruct Patient and Family on Signs and Symptoms to Report; Instruct Patient and Family on Medication Effects and Side Effects; Provide Appropriate and Timely Education Using Multiple Techniques; Provide Patient and Family with Support Group Information and Resources; Give Clear and Thorough Explanations and Demonstrations (Chelle Da Silva RN) Outcome: Patient and Family will Verbalize Understanding of Condition, Treatment and Signs and Symptoms to Report (Chelle Da Silva RN) Outcome: Patient will Identify Perceived Learning Needs and Express Motivation to Learn (Chelle Da Silva RN) Outcome: Patient will Verbalize Understanding of Desired Content, and/or Performs Desired Skill Prior to Discharge (Chelle Da Silva RN) Infection State: Risk For (Chelle Da Silva RN) Related To: Prolonged Labor or Induction; Invasive Procedures (Chelle Da Silva RN) Goal(s): The Patient will be Free of Infection, Vital Signs Stable and Lab Work within Normal Parameters (Chelle Da Silva RN) Interventions: Instruct and Reinforce Proper Handwashing, Hygiene, and Care Techniques to Patient and Family; Monitor Vital Signs; Monitor Patient for the Following Signs of Infection: Fever, Abdominal Tenderness, Unusual Discharge; Monitor Aminiotic Fluid, Urine and Lochia for Color and Odor; Observe Wounds, Incisions and Invasive Line Sites for Redness, Drainage and Edema; Assess IV Sites per Hospital Policy; Monitor Lab and Test Results and Notify Provider of Abnormal Findings; Assess Nutritional Status and Promote Good Nutrition (Chelle Da Silva RN) Outcome: Patient will Remain Free of Infection (Chelle Da Silva RN) Outcome: Infection will be Recognized Early to Allow for Prompt Treatment (Chelle Da Silva RN) Outcome: Patient will have Vital Signs Within Expected Range (Chelle Da Silva RN) Fluid Volume State: Risk For (Chelle Da Silva RN) Related To: Prolonged Labor or Induction; Hemorrhage (Chelle Da Silva RN) Goal(s): Patient will Achieve and Maintain a Balanced Fluid Volume Status; Hemodynamically Stable (Chelle Da Silva RN) Interventions: Monitor Vital Signs; Auscultate Breath Sounds; Monitor Patient for Skin Turgor, Mucous Membranes, Dry Skin, Weakness, Headaches and Confusion; Provide Oral Fluids as Ordered; Initiate and Maintain Intravenous Fluids as Ordered; Monitor Intake and Output as Indicated Per Patient Status; Accurately Measure Blood Loss; Monitor Lab and Test Results as Obtained and Notify Provider of Abnormal Findings; Monitor Patient's Weight (Chelle Da Silva RN) Outcome: Patient will have Clear Lung Sounds (Chelle Da Silva RN) Outcome: Patient will have Vital Signs within Expected Range (Chelle Da Silva RN) Outcome: Urine Output will be within Expected Range (Chelle Da Silva RN) Outcome: Patient will have Minimal Generalized or Upper Extremity Edema (Chelle Da Silva RN) Injury State: Risk For (Chelle Da Silva RN) Related To: Anesthesia; Altered Coagulation; Uteroplacental Perfusion (Chelle Da Silva RN) Goal(s): Patient will Remain Free from Injury (Chelle Da Silva RN) Interventions: Monitoring as per Hospital Protocol; Assess Neurological Status; Perform Risk Assessment of Patients with Induction and ; Perform Fall Risk Assessment and Prevention per Hospital Protocol; Perform DVT Risk Assessment and Prophylaxis per Hospital Protocol; Ensure that Oxygen, Suction, and Resuscitation Medications and Equipment are Readily Available; Confirm Patient ID Prior to Procedure(s) and Medication Administration per Hospital Policy (Chelle Da Silva RN) Outcome: Successful Fall Risk Prevention (Chelle Da Silva RN) Outcome: Patient will Deliver without Adverse Sequela (Chelle Da Silva RN) Outcome: Patient's Neurological Status will Remain Stable (Chelle Da Silva RN) Impaired Skin Integrity State: Risk For (Chelle Da Silva RN) Related To: Vaginal Delivery; Surgical Procedures (Chelle Da Silva RN) Goal(s): Patient will Maintain Optimal Skin Integrity, Free of Breakdown, Injury or Infection (Chelle Da Silva RN) Interventions: Complete Screening for Pressure Ulcer Risk and Initiate Protocol per Hospital Policy; Monitor Site of Skin Impairment for Color Changes, Redness, Swelling, Warmth, Pain or Other Signs of Infection; Encourage and Assist with Position Changes; Monitor Patient's Mobility Status; Provide Adequate Nutrition and Fluids; Teach Patient Appropriate Hygienic Care; Teach Patient/Family Skin Care Management (Chelle Da Silva RN) Outcome: Patient will not have Evidence of Injury Such as Skin Breakdown, Scrapes, Cuts, or Bruising (Chelle Da Silva RN) Outcome: Patient will Report Any Altered Sensation or Pain at Site of Skin Impairment (Chelle Da Silva, [place]) Outcome: Patients Incisions and Wounds will be without Signs or Symptoms of Infection (Chelle Da Silva, [place]) Outcome: Patient will Demonstrate Understanding of Plan to Heal Skin and Prevent Reinjury and Verbalize Risk Factors (Chelle Da Silva RN) Parenting Impaired State: Risk For (Chelle Da Silva RN) Related To: Apprehension Related to Care (Chlele Da Silva RN) Goal(s): Parents will Demonstrate Progressive Parenting Behaviors (Chelle Da Silva RN) Interventions: Assess for Adequacy of Support Systems; Observe and Encourage Patient/Family Infant Attachment and Bonding Activities and Provide Feedback; Assess Patient/Family Understanding of Infant's Condition and Provide Accurate Information About Condition, Treatment and Prognosis; Assess for Patient/Family Behaviors that May Indicate Lack of Attachment; Provide a Safe Non-judgmental Environment for Patient/Family to Discuss Concerns; Promote Patient/Family Cohesiveness by Encouraging Discussion and Problem Solving; Chemical Operations Specialist Referral as Indicated (Chelle Da Silva RN) Outcome: Patient/Family will Discuss Their Fears and the Possibility of Difficulties with Parenting (Chelle Da Silva RN) Outcome: Patient/Family will Exhibit Appropriate Bonding Behaviors with (Chelle Da Silva RN) Outcome: Patient/Family will Verbalize Positive Feelings and Demonstrate Affection and Caring Toward (Chelle Da Silva RN)
[2016-10-24] MEDS: IBUPROFEN 800 MG TABLET PO SCH (05:13)
[2016-10-24] MEDS: ACETAMINOPHEN WITH CODEINE #3 TABLET PO PRN ×2 (05:14→09:21)
--- NOTE | 2016-10-24 06:01 | L&D General Admission ---
General Admit Datetime Report Generated by CPN: 10/24/2016 06:00 INFORMATION Patient Age: 20 (08/26/2016 12:36:QS system process) EDC: 10/15/2016 00:00 (10/22/2016 01:15:Ellyn East RN) : 1 (10/22/2016 01:15:Ellyn East RN) Para: 0 (10/22/2016 01:15:Ellyn East RN) Baby, Number in Womb: 1 (10/22/2016 01:15:Rayne Valladares RN) CARE Primary Steam Trap Worker: [facility] (10/22/2016 01:15:Ellyn East RN) Month of 1st Visit: February (10/22/2016 01:15:Rebecca Rainey RN) Adequate Care: Yes (10/22/2016 01:15:Rebecca Rainey RN) Height (in): 63 (10/22/2016 22:22:QS system process) ALLERGIES Medication Allergy: No (10/22/2016 01:15:Rebecca Rainey RN) Medication Allergies: No Known Allergies (05/03/2016) (10/22/2016 08:22:QS system process) Latex Allergy: Latex Allergies (10/22/2016 01:15:Rebecca Rainey RN) COMMUNICATION Primary Language: Tajik (10/22/2016 01:15:Rebecca Rainey RN) Communication Barrier(s): None (10/22/2016 01:15:Rebecca Ledgerwood, RN) DEMOGRAPHICS Address: [address] [place] [address] (10/22/2016 00:58:QS system process) Zipcode: [address] (10/22/2016 00:58:QS system process) Home (08/26/2016 12:36:QS system process) SSN: [id number] (08/26/2016 12:36:QS system process) Next of Kin Name: CROW BULLOCK (08/26/2016 12:36:QS system process) Next of Kin (08/26/2016 12:36:QS system process) Next of Kin Relationship: OR (08/26/2016 12:36:QS system process) Date of : 1995 (08/26/2016 12:36:QS system process) Marital Status: (08/26/2016 12:36:QS system process) Sex: Female (08/26/2016 12:36:QS system process) Race: (08/26/2016 12:36:QS system process) Ethnicity: Non- or (08/26/2016 12:36:QS system process) Druze: None (08/26/2016 12:36:QS system process) DRUG AND ALCOHOL USE Alcohol: No (10/22/2016 01:15:Rebecca Rainey RN) Cigarettes: Never Smoker. [id number] (10/22/2016 01:15:Rebecca Rainey RN) Marijuana: No (10/22/2016 01:15:Rebecca Rainey RN) Cocaine: No (10/22/2016 01:15:Rebecca Rainey RN) Other Illicit Drugs: No (10/22/2016 01:15:Rebecca Rainey RN) VACCINE HISTORY Influenza Vaccine: No (10/22/2016 01:15:Rebecca Rainey RN) Assistant Toddler Teacher: [facility] (10/22/2016 01:15:Rebecca Rainey RN) Feeding Preference: Breast (10/22/2016 01:15:Rebecca Rainey RN) Benefit of Breast Feed Discussed: Yes (10/22/2016 01:15:Rebecca Rainey RN) Circumcision: Yes (10/22/2016 01:15:Rebecca Rainey RN) Classes Attended: No (10/22/2016 01:15:Rebecca Rainey RN) Tubal Ligation: No (10/22/2016 01:15:Rebecca Rainey RN) Tubal Authorization Signed: N/A (10/22/2016 01:15:Rebecca Rainey RN) Consent: N/A (10/22/2016 01:15:Rebecca Rainey RN) Consent Signed: N/A (10/22/2016 01:15:Rebecca Rainey RN) Pain Management Plans: Epidural (10/22/2016 01:15:Rebecca Rainey RN) Plans for Labor and Delivery: None (10/22/2016 01:15:Rebecca Rainey RN) Support Person: Beata (10/22/2016 01:15:Rebecca Rainey RN) Support Person Relationship: Mother (10/22/2016 01:15:Rebecca Rainey RN) Cultural/Spritual Practice: No (10/22/2016 01:15:Rebecca Rainey RN) Spir/Cult Dietary Needs: No (10/22/2016 01:15:Rebecca Rainey RN) LIVING SITUATION/DISCHARGE PLAN Living Arrangements: House (10/22/2016 01:15:Rebecca Rainey RN) Adequate Access to:: Electric; Heat; Refrigeration; Plumbing/Running water; Phone; Transportation (10/22/2016 01:15:Rebecca Rainey RN) WIC Program: Yes (10/22/2016 01:15:Rebecca Rainey RN) Discharge Surgical Services Assistant Person: mother (10/22/2016 01:15:Rebecca Rainey RN) Person to Help after Discharge: mother (10/22/2016 01:15:Rebecca Rainey RN) Currently Using Commun Resources: Yes (10/22/2016 01:15:Rebecca Rainey RN) Specify Current Resource Used: WIC (10/22/2016 01:15:Rebecca Rainey RN) Outside Agency/Manager Analysis: No (10/22/2016 01:15:Rebecca Rainey RN) Car Seat for Discharge: Yes (10/22/2016 01:15:Rebecca Rainey RN) Adoption Requested: No (10/22/2016 01:15:Rebecca Rainey RN) Pt Contact w/infant Post : No (10/22/2016 01:15:Rebecca Rainey RN) LABS Blood Type: O Positive (10/22/2016 01:15:Ellyn East RN) Antibody Screen: negative (10/22/2016 01:15:Ellyn East RN) Hemoglobin: 10.3 L (10/23/2016 07:04:QS system process) Hematocrit: 30.7 L (10/23/2016 07:04:QS system process) MCV: 79 L (10/23/2016 07:04:QS system process) Group Beta Strep: negative (10/22/2016 01:15:Ellyn East RN) Gonorrhea: Negative (10/22/2016 01:15:Ellyn East RN) Chlamydia: Negative (10/22/2016 01:15:Ellyn East RN) RPR/VDRL: Nonreactive (10/22/2016 01:15:Ellyn East RN) HIV Exposure Test: Negative (10/22/2016 01:15:Ellyn East RN) Hepatitis B: Negative (10/22/2016 01:15:Ellyn East RN) Rubella: Immune (10/22/2016 01:15:Ellyn East RN) OB/PREVIOUS HISTORY Current Procedures: Ultrasound (10/22/2016 01:15:Rebecca Rainey RN) History of Previous : No (10/22/2016 01:15:Rebecca Rainey RN) History of Gestational Diabetes: No (10/22/2016 01:15:Rebecca Rainey RN) History of PIH: No (10/22/2016 01:15:Rebecca Rainey RN) History of Incompetent Cervix: No (10/22/2016 01:15:Rebecca Rainey RN) History of Placenta Previa/Abrup: No (10/22/2016 01:15:Rebecca Rainey RN) History of Macrosomia: No (10/22/2016 01:15:Rebecca Rainey RN) History of IUGR: No (10/22/2016 01:15:Rebecca Rainey RN) History of Hemorrhage: No (10/22/2016 01:15:Rebecca Rainey RN) History of Loss/Stillborn: No (10/22/2016 01:15:Rebecca Rainey RN) History of : No (10/22/2016 01:15:Rebecca Rainey RN) History of D (Rh) Sensitization: No (10/22/2016 01:15:Rebecca Rainey RN) History Recurrent Loss/Stillborn: No (10/22/2016 01:15:Rebecca Rainey RN) History Depression/PP Depression: No (10/22/2016 01:15:Rebecca Rainey RN) History of Uterine Anomaly/FRANK: No (10/22/2016 01:15:Rebecca Rainey RN) History of Infertility: No (10/22/2016 01:15:Rebecca Rainey RN) History of ART Treatment: No (10/22/2016 01:15:Rebecca Rainey RN) History of FRANK: No (10/22/2016 01:15:Rebecca Rainey RN) MEDICAL HISTORY Med Hx Diabetes: No (10/22/2016 01:15:Rebecca Rainey RN) Med Hx Hypertension: No (10/22/2016 01:15:Rebecca Rainey RN) Med Hx Heart Disease: No (10/22/2016 01:15:Rebecca Rainey RN) Med Hx Autoimmune Disorder: No (10/22/2016 01:15:Rebecca Rainey RN) Med Hx Kidney Disease/UTI: No (10/22/2016 01:15:Rebecca Rainey RN) Med Hx Neurologic/Epilepsy: No (10/22/2016 01:15:Rebecca Rainey RN) Med Hx Psychiatric Disorders: No (10/22/2016 01:15:Rebecca Rainey RN) Med Hx Hepatitis/Liver Disease: No (10/22/2016 01:15:Rebecca Rainey RN) Med Hx Varicosities/Phlebitis: No (10/22/2016 01:15:Rebecca Rainey RN) Med Hx Thyroid Dysfunction: No (10/22/2016 01:15:Rebecca Rainey RN) Med Hx Trauma/Violence: No (10/22/2016 01:15:Rebecca Rainey RN) Med Hx Blood Transfusion: No (10/22/2016 01:15:Rebecca Rainey RN) Med Hx Pulmonary (Asthma,TB): No (10/22/2016 01:15:Rebecca Rainey RN) Med Hx Breast: No (10/22/2016 01:15:Rebecca Rainey RN) Med Hx PIPER INSTALLER Surgery: No (10/22/2016 01:15:Rebecca Rainey RN) Med Hx Hospitalization/Surgery: Yes (10/22/2016 01:15:Rebecca Rainey RN) Med Hx Anesthetic Complications: No (10/22/2016 01:15:Rebecca Rainey RN) Med Hx Abnormal Pap Smear: No (10/22/2016 01:15:Rebecca Rainey RN) Other Medical Diseases: No (10/22/2016 01:15:Rebecca Rainey RN) Med Hx Significant Family Hx: No (10/22/2016 01:15:Rebecca Rainey RN) Details of Med/Surg Hx: ACL reconstruction (10/22/2016 01:15:Rebecca Rainey RN) INFECTIOUS HISTORY Inf Hx Gonorrhea: No (10/22/2016 01:15:Rebecca Rainey RN) Inf Hx Chlamydia: No (10/22/2016 01:15:Rebecca Rainey RN) Inf Hx Syphilis: No (10/22/2016 01:15:Rebecca Rainey RN) Inf Hx HIV/AIDS: No (10/22/2016 01:15:Rebecca Rainey RN) Inf Hx Human Papilloma Virus: No (10/22/2016 01:15:Rebecca Rainey RN) Inf Hx Pt/Partner Genital Herpes: No (10/22/2016 01:15:Rebecca Rainey RN) Inf Hx Tuberculosis/Exposure: No (10/22/2016 01:15:Rebecca Rainey RN) Inf Hx Hepatitis B,C: No (10/22/2016 01:15:Rebecca Rainey RN) Inf Hx Rash or Viral Illness: No (10/22/2016 01:15:Rebecca Rainey RN) GENETIC HISTORY Gen Hx Age >=35 at VOLODYMYR: No (10/22/2016 01:15:Rebecca Rainey RN) Gen Hx Thalassemia: No (10/22/2016 01:15:Rebecca Rainey RN) Gen Hx Congenital Heart Defect: Yes (10/22/2016 01:15:Rebecca Rainey RN) Gen Hx Neural Tube Defect: No (10/22/2016 01:15:Rebecca Rainey RN) Gen Hx Down's Syndrome: No (10/22/2016 01:15:Rebecca Rainey RN) Gen Hx Gage-Sachs: No (10/22/2016 01:15:Rebecca Rainey RN) Gen Hx Branden: No (10/22/2016 01:15:Rebecca Rainey RN) Gen Hx Familial Dysautonomia: No (10/22/2016 01:15:Rebecca Rainey RN) Gen Hx Sickle Cell Disease/Trait: No (10/22/2016 01:15:Rebecca Rainey RN) Gen Hx Hemophilia/Blood Disorder: No (10/22/2016 01:15:Rebecca Rainey RN) Gen Hx Muscular Dystrophy: No (10/22/2016 01:15:Rebecca Rainey RN) Gen Hx Cystic Fibrosis: No (10/22/2016 01:15:Rebecca Rainey RN) Gen Hx Huntingtons Chorea: No (10/22/2016 01:15:Rebecca Rainey RN) Gen Hx Mental Retardation/Autism: No (10/22/2016 01:15:Rebecca Rainey RN) Gen Hx Tested for Fragile X: No (10/22/2016 01:15:Rebecca Rainey RN) Gen Hx Other Inher/Chromosomal: No (10/22/2016 01:15:Rebecca Rainey RN) Gen Hx Maternal Metabolic DO: No (10/22/2016 01:15:Rebecca Raniey RN) Gen Hx Pt Father or FOB Defect: No (10/22/2016 01:15:Rebecca Rainey RN) Gen Hx Other Genetic History: No (10/22/2016 01:15:Rebecca Rainey RN) Gen Hx Drugs/Meds since LMP: No (10/22/2016 01:15:Rebecca Rainey RN) Details of Genetic History: Down Syndrome from father's side (10/22/2016 01:15:Rebecca Rainey RN)
[2016-10-24 09:14] VITALS: BP 120/65
[2016-10-24] MEDS ORDERED: SIMETHICONE 80 MG TAB.CHEW PO PRN (09:15)
[2016-10-24] MEDS: FERROUS SULFATE 325 MG TABLET PO SCH (09:21)
[2016-10-24] MEDS: DOCUSATE SODIUM 100 MG CAPSULE PO SCH (09:21)
[2016-10-24] MEDS: SENNOSIDES/DOCUSATE 8.6-50 MG 1 EACH TABLET PO SCH (09:21)
[2016-10-24] MEDS: PRENATAL VITAMIN W-O CA NO5/FE FUMARATE/FA CAPSULE PO SCH (09:21)
--- NOTE | 2016-10-24 09:59 | PDOC DISCHARGE SUMMARY ---
Final Diagnosis Discharge Date: 10/24/16 - Final Diagnosis (1) Vaginal delivery Is this a current diagnosis for this admission?: Yes Discharge Data - Discharge Medication Home Medications: Ibuprofen 800 mg PO Q8HP PRN #30 tablet 08/26/14 Acetaminophen with Codeine [Tylenol #3 Tablet] 1 each PO Q4HP PRN #14 tablet 01/05 Docusate Sodium [Colace 100 mg Capsule] 100 mg PO BID #60 capsule 10/24/16 Ferrous Sulfate [Feosol 325 mg Tablet] 325 mg PO BID #60 tablet 10/24/16 Ibuprofen [Motrin 800 mg Tablet] 800 mg PO Q8 #60 tablet 10/24/16 Gestational Age: 41 Reason(s) for Admission: Induction of Labor Procedures: NST Intrapartum Procedure(s): Spontaneous Vaginal Delivery Laceration-Degree: 1st - Data Baby 1 Male at 1 minute: 9 at 5 minutes: 10 Weight: 4038 kg Home with Mother: Yes Complications: No - Diagnosis Test Laboratory: Temp Pulse Resp BP Pulse Ox 97.4 F 79 16 120/65 100 10/24/16 08:10 10/24/16 08:10 10/24/16 08:10 10/24/16 08:10 10/24/16 08:10 10/22/16 10/22/16 10/23/16 01:10 01:39 07:04 RBC 4.09 3.88 Hgb 10.8 L 10.3 L Hct 32.5 L 30.7 L Urine Opiates Screen NEGATIVE - Discharge information/Instructions Discharge Activity: Activity As Tolerated, Pelvic Rest, No tub bath Discharge Diet: Regular Disposition: HOME, SELF-CARE Follow up with: [facility] in: 4, Weeks
--- NOTE | 2016-10-29 09:16 | Delivery Summary ---
Del Sum A-C Datetime Report Generated by CPN: 10/29/2016 09:15 ADMISSION DATA Chief Complaint: Scheduled Induction of Labor Indication for Induction: Post Dates Admission Impression: Term, Intrauterine ; No Active Labor; Intact Membranes; Induction of Labor Admit Provider Comments: allergy to chromic gut see chart for complete hx Iol for post dates, care uncomplicated gbs negative cervidil removed, 1/thick/high-> baird bulb and po cytotec DELIVERY PERSONNEL Delivery Doctor:: Romelia Coleman CNM Nurse Supply Requirements Officer Certified:: Romelia Coleman CNM Labor and Delivery Nurse:: Rayne Valladares RNpicc nurse Nurse:: KAELA Hannon Spaghetti Machine Operator/AMARILIS: [facility] MATERNAL INFORMATION Delivery Anesthesia: Epidural Medications After Delivery: Pitocin Drip 20 Units/1000ml NSS Meds After Delivery Comment: 20 units Pitocin in 1 L NS bolusing per order Estimated Blood Loss (ml): 200 Maternal Complications: None Provider Comments: of viable male infant over intact perineum. Head, shoulders, and body delivered without difficulty. Infant vigorous, with spontaneous cry and respirations, to maternal abdomen, cord clamped X2, after 2 min delay, cord cut by pts s.o. Spontaneous delivery of placenta via gamez mechanism, appears intact 3 VC. Vagina and perineum inspected, repair as above, hemostasis acheived with IV pitocin and external fundal massage. Mother and in stable condition. Routne care. LABOR SUMMARY EDC: 10/15/2016 00:00 No. Babies in Womb: 1 Attempted: No Labor Anesthesia: Epidural LABOR INFORMATION Reason for Induction: Post Dates Onset of Labor: 10/22/2016 14:07 Complete Dilatation: 10/22/2016 16:43 Cervical Ripening Agents: Cervidil Oxytocin: Induction Group B Beta Strep: negative Antibiotics # of Doses: 0 Steroids Given: None Reason Steroids Not Administered: Not Applicable MEMBRANES Membranes Rupture Method: Artificial Rupture of Membranes: 10/22/2016 14:09 Length of Rupture (hr): 3.05 Amniotic Fluid Color: Clear Amniotic Fluid Amount: Large Amniotic Fluid Odor: Normal STAGES OF LABOR Stage 1 hr: 2 Stage 1 min: 36 Stage 2 hr: 0 Stage 2 min: 29 Stage 3 hr: 0 Stage 3 min: 6 Total Time in Labor hr: 3 Total Time in Labor min: 11 VAGINAL DELIVERY Episiotomy: None Laceration Extension: N/A Other Laceration: right labial Laceration Repair: Yes Laceration Repair Note: 2 single sutures placed 3-0 vicryl using epidural anesthesia Sponge Count Correct: N/A; Yes Sharps Count Correct: Yes CSECTION DELIVERY Primary Indication: N/A Secondary Indication: N/A CSection Incidence: N/A Labor: N/A Elective: N/A CSection Incision: N/A BABY A INFORMATION Infant Delivery Date/Time: 10/22/2016 17:12 Method of Delivery: Vaginal Born in Route : No : N/A Forceps: N/A Vacuum Extraction: N/A Shoulder Dystocia : No PRESENTATION/POSITION BABY A Presentation: Cephalic Cephalic Presentation: Vertex Vertex Position: Right Occipital Anterior Breech Presentation: N/A PLACENTA INFORMATION BABY A Placenta Delivery Time : 10/22/2016 17:18 Placenta Method of Delivery: Spontaneous Placenta Status: Delivered SCORES BABY A Heart Rate 1 min: >100 bpm Resp Effort 1 min: Good Cry Reflex Irritability 1 min: Cough or Sneeze or Pulls Away Muscle Tone 1 min: Active Motion Color 1 min: Body [place], Extremities Blue Resuscitation Effort 1 min: Tactile Stimulation SCORE 1 MIN: 9 Heart Rate 5 min: >100 bpm Resp Effort 5 min: Good Cry Reflex Irritability 5 min: Cough or Sneeze or Pulls Away Muscle Tone 5 min: Active Motion Color 5 min: Completely [place] Resuscitation Effort 5 min: Tactile Stimulation SCORE 5 MIN: 10 INFANT INFORMATION BABY A Gestational Age at Delivery: 41.0 Gestational Status: Late Term- 41- 41.6 Weeks Outcome : Liveborn Condition : Stable Infant Sex: Male IDENTIFICATION BABY A Infant Verification Date/Time: 10/22/2016 18:00 ID Band Number: [id number] Mother's Name Verified: Yes RN Verifying Infant: Henrietta Webster RN WEIGHT/LENGTH BABY A Infant Birthweight (gm): 4038 Weight (lb): 8 Weight (oz): 14 Length (in): 21.50 Infant Length (cm): 54.61 CORD INFORMATION BABY A No. Cord Vessels: 3 Nuchal Cord : N/A Cord Blood Taken: Yes-For Eval (Mom's Blood Type - or O+) Suction: Mouth; Nose ASSESSMENT BABY A Infant Complications: None Physical Findings at Delivery: Molding of the Head Infant Respirations: Appears Normal Skin to Skin: Yes Skin to Skin Time (min): 60 Lab Head/ALS Called : No Care By: Grace Stauffer RN Transferred To: Nursery BABY B INFORMATION : N/A SIGNATURES Assignment: Berenice Contreras MD Signature: with User ID: Kobe : with User ID: [email or web address]
== END 2016-10-24 14:05 | disposition home or self-care (01) | DRG 775 ==
LOC: LR 10-22 00:58 → EEVIPCON 10-22 00:58 → 2S 10-22 22:12
PROVIDERS: ADMIT Obstetrics & Gynecology; ATTEND Obstetrics & Gynecology
PROC: 10E0XZZ Delivery of Products of Conception, External Approach (ICD-10-PCS; principal; 2016-10-22)
PROC: 0HQ9XZZ Repair Perineum Skin, External Approach (ICD-10-PCS; 2016-10-22)
PROC: 3E033VJ Introduction of Other Hormone into Peripheral Vein, Percutaneous Approach (ICD-10-PCS; 2016-10-22)
PROC: 10907ZC Drainage of Amniotic Fluid, Therapeutic from Products of Conception, Via Natural or Artificial Opening (ICD-10-PCS; 2016-10-22)
PROC: 10H073Z Insertion of Monitoring Electrode into Products of Conception, Via Natural or Artificial Opening (ICD-10-PCS; 2016-10-22)
PROC: 4A1H7CZ Monitoring of Products of Conception, Cardiac Rate, Via Natural or Artificial Opening (ICD-10-PCS; 2016-10-22)
DX: O48.0 Post-term pregnancy (principal); O70.0 First degree perineal laceration during delivery; Z3A.41 41 weeks gestation of pregnancy; Z37.0 Single live birth; Z88.8 Allergy status to other drugs, medicaments and biological substances
CPT/HCPCS: 36415; 80307; 81005; 85025; 85027; 86592; 86850; 86900; 86901; C1726; J2300; J2590; J3490